=== PATIENT | male | born 1960 | race Caucasian/White ===

== ENCOUNTER 2021-02-20 10:00 | Outpatient (REF) | payer OTHER, SELFPAY ==
[2021-02-20 11:29] LABS: MANUAL DIFF FLAG NO
[2021-02-20 11:46] LABS: Basophils Absolute Auto 0.1 X10*3/uL (0.0-0.2); Basophils Percent Auto 0.7 % (0-2); Eosinophils Absolute Auto 0.2 X10*3/uL (0.0-0.4); Eosinophils Percent Auto 2.6 % (0-4); Hematocrit 47.5 % (42-52); Hemoglobin 15.4 g/dl (14.0-18.0); Imm Gran Abs Auto 0.03 X10*3/uL (0.00-0.03); Imm Gran Pct Auto 0.4 % (0.0-0.4); Lymphocytes Absolute Auto 1.9 X10*3/uL (1.2-4.9); Lymphocytes Percent Auto 26.2 % (20-40); Mean Corpuscular HGB Conc 32.4 g/dl (31.0-36.0); Mean Corpuscular Hemoglobin 29.3 pg (27.0-33.0); Mean Corpuscular Volume 90.3 fL (80-98); Mean Platelet Volume 11.3 fL (9.4-12.4); Monocytes Absolute Auto 0.5 X10*3/uL (0.1-1.2); Neutrophils Absolute Auto 4.7 X10*3/uL (2.0-8.3); Neutrophils Percent Auto 63.1 % (45-73); Platelet Count 202 X10*3/uL (160-400); Red Blood Count 5.26 X10*6/uL (4.60-5.80); Red Cell Distribution Width 12.8 % (11.0-16.0); White Blood Count 7.4 X10*3/uL (4.8-10.8)
[2021-02-20 12:01] LABS: Alanine Aminotransferase 67 U/L (0-40); Albumin Level 4.3 g/dL (3.5-5.0); Alkaline Phosphatase 72 U/L (39-117); Anion Gap 13 (12-20); Aspartate Amino Transferase 32 U/L (5-37); Bilirubin Total 0.7 mg/dL (0.0-1.0); Blood Urea Nitrogen 15 mg/dL (9-16); Calcium 9.2 mg/dL (8.4-10.2); Carbon Dioxide 28 mmol/L (22-29); Chloride 106 mmol/L (96-108); Cholesterol 208 mg/dL; Estimated Glomerular Filt Rate > 60; Glucose Fasting 123 mg/dL (60-99); HDL Cholesterol 52 mg/dL; LDL Cholesterol Calculated 119 mg/dl; Sodium 143 mmol/L (135-145); Total Protein 6.7 g/dL (6.5-8.0); Triglycerides 186 mg/dL
[2021-02-20 12:18] LABS: Microalbum/Creatinine Ratio Ur 4.3 ug/mg cr
[2021-02-20 12:23] LABS: Estimated Average Glucose 120 mg/dL; Hemoglobin A1c % 5.8 %
== END 2021-02-20 10:01 | disposition home or self-care (01) ==
LOC: HO.HMGCLDS 10:00
PROVIDERS: PCP Internal Medicine; Visit Provider Internal Medicine
DX: I10 Essential (primary) hypertension (principal); R73.03 Prediabetes; E78.00 Pure hypercholesterolemia, unspecified
CPT/HCPCS: 36415; 80053; 80061; 82043; 83036; 85025

== ENCOUNTER 2021-08-18 09:42 | Outpatient (REF) | payer OTHER, SELFPAY ==
[2021-08-18 11:42] LABS: MANUAL DIFF FLAG NO
[2021-08-18 11:48] LABS: Basophils Percent Auto 0.5 % (0-2); Eosinophils Absolute Auto 0.2 X10*3/uL (0.0-0.4); Eosinophils Percent Auto 2.1 % (0-4); Hematocrit 47.9 % (42.0-52.0); Hemoglobin 15.4 g/dl (14.0-18.0); Imm Gran Abs Auto 0.03 X10*3/uL (0.00-0.03); Imm Gran Pct Auto 0.4 % (0.0-0.4); Lymphocytes Absolute Auto 2.3 X10*3/uL (1.2-4.9); Lymphocytes Percent Auto 28.6 % (20-40); Mean Corpuscular HGB Conc 32.2 g/dl (31.0-36.0); Mean Corpuscular Volume 90.2 fL (80.0-98.0); Mean Platelet Volume 11.2 fL (9.4-12.4); Monocytes Absolute Auto 0.7 X10*3/uL (0.1-1.2); Monocytes Percent Auto 8.7 % (2-11); Neutrophils Absolute Auto 4.8 x10*3/uL (2.0-8.3); Neutrophils Percent Auto 59.7 % (45-73); Platelet Count 209 X10*3/uL (160-400); Red Blood Count 5.31 X10*6/uL (4.60-5.80); White Blood Count 8.1 X10*3/uL (4.8-10.8)
[2021-08-18 12:08] LABS: Alanine Aminotransferase 59 U/L (0-40); Albumin Level 4.3 g/dL (3.5-5.0); Alkaline Phosphatase 71 U/L (39-117); Anion Gap 15 (12-20); Aspartate Amino Transferase 28 U/L (5-37); Bilirubin Total 0.5 mg/dL (0.0-1.0); Blood Urea Nitrogen 19 mg/dL (9-16); Calcium 9.4 mg/dL (8.4-10.2); Carbon Dioxide 27 mmol/L (22-29); Chloride 104 mmol/L (96-108); Estimated Glomerular Filt Rate 60; Glucose Random 125 mg/dL (60-115); Potassium 4.4 mmol/L (3.3-5.1); Sodium 142 mmol/L (135-145); Total Protein 6.9 g/dL (6.5-8.0)
[2021-08-18 12:13] LABS: Estimated Average Glucose 120 mg/dL; Hemoglobin A1c % 5.8 %
== END 2021-08-18 09:43 | disposition home or self-care (01) ==
LOC: HO.HMGCLDS 09:42
PROVIDERS: PCP Internal Medicine; Visit Provider Internal Medicine
DX: I10 Essential (primary) hypertension (principal); R73.03 Prediabetes; R79.89 Other specified abnormal findings of blood chemistry
CPT/HCPCS: 36415; 80053; 83036; 85025

== ENCOUNTER 2021-12-31 09:10 | Outpatient (REF) | payer OTHER, SELFPAY ==
[2021-12-31 11:51] LABS: MANUAL DIFF FLAG NO
[2021-12-31 12:00] LABS: Basophils Absolute Auto 0.1 X10*3/uL (0.0-0.2); Basophils Percent Auto 0.7 % (0-2); Eosinophils Absolute Auto 0.1 X10*3/uL (0.0-0.4); Eosinophils Percent Auto 1.9 % (0-4); Hematocrit 48.9 % (42.0-52.0); Hemoglobin 15.8 g/dl (14.0-18.0); Imm Gran Abs Auto 0.01 X10*3/uL (0.00-0.03); Imm Gran Pct Auto 0.1 % (0.0-0.4); Lymphocytes Absolute Auto 2.1 X10*3/uL (1.2-4.9); Lymphocytes Percent Auto 28.3 % (20-40); Mean Corpuscular HGB Conc 32.3 g/dl (31.0-36.0); Mean Corpuscular Hemoglobin 28.8 pg (27.0-33.0); Mean Corpuscular Volume 89.2 fL (80.0-98.0); Mean Platelet Volume 11.1 fL (9.4-12.4); Monocytes Absolute Auto 0.6 X10*3/uL (0.1-1.2); Monocytes Percent Auto 7.5 % (2-11); Neutrophils Absolute Auto 4.6 x10*3/uL (2.0-8.3); Neutrophils Percent Auto 61.5 % (45-73); Platelet Count 215 X10*3/uL (160-400); Red Blood Count 5.48 X10*6/uL (4.60-5.80); Red Cell Distribution Width 12.9 % (11.0-16.0); White Blood Count 7.4 X10*3/uL (4.8-10.8)
[2021-12-31 12:15] LABS: Microalbum/Creatinine Ratio Ur 4.5 ug/mg cr
[2021-12-31 12:17] LABS: Alanine Aminotransferase 60 U/L (0-40); Albumin Level 4.2 g/dL (3.5-5.0); Alkaline Phosphatase 68 U/L (39-117); Anion Gap 12 (12-20); Aspartate Amino Transferase 29 U/L (5-37); Bilirubin Total 0.4 mg/dL (0.0-1.0); Blood Urea Nitrogen 17 mg/dL (9-16); Calcium 9.7 mg/dL (8.4-10.2); Carbon Dioxide 26 mmol/L (22-29); Chloride 107 mmol/L (96-108); Estimated Glomerular Filt Rate > 60; Glucose Random 136 mg/dL (60-115); Potassium 4.3 mmol/L (3.3-5.1); Sodium 141 mmol/L (135-145); Total Protein 6.7 g/dL (6.5-8.0)
[2021-12-31 12:57] LABS: Estimated Average Glucose 128 mg/dL; Hemoglobin A1c % 6.1 %
== END 2021-12-31 09:11 | disposition home or self-care (01) ==
LOC: HO.HMGCLDS 09:10
PROVIDERS: PCP Internal Medicine; Visit Provider Internal Medicine
DX: R73.03 Prediabetes (principal); I10 Essential (primary) hypertension; E78.00 Pure hypercholesterolemia, unspecified; K21.9 Gastro-esophageal reflux disease without esophagitis
CPT/HCPCS: 36415; 80053; 82043; 83036; 85025

== ENCOUNTER 2022-04-27 09:39 | Outpatient (REF) | payer OTHER, SELFPAY ==
[2022-04-27 11:46] LABS: Anion Gap 12 (12-20); Blood Urea Nitrogen 15 mg/dL (9-16); Carbon Dioxide 26 mmol/L (22-29); Chloride 105 mmol/L (96-108); Estimated Average Glucose 123 mg/dL; Estimated Glomerular Filt Rate > 60; Glucose Random 138 mg/dL (60-115); Hemoglobin A1c % 5.9 %; Potassium 4.1 mmol/L (3.3-5.1); Sodium 139 mmol/L (135-145)
== END 2022-04-27 09:40 | disposition home or self-care (01) ==
LOC: HO.HMGCLDS 09:39
PROVIDERS: Visit Provider Internal Medicine
DX: I10 Essential (primary) hypertension (principal); R73.03 Prediabetes
CPT/HCPCS: 36415; 80048; 83036

== ENCOUNTER 2022-09-03 08:41 | Outpatient (REF) | payer OTHER, SELFPAY ==
[2022-09-03 11:17] LABS: MANUAL DIFF FLAG NO
[2022-09-03 11:24] LABS: Basophils Absolute Auto 0.1 X10*3/uL (0.0-0.2); Basophils Percent Auto 0.6 % (0-2); Eosinophils Absolute Auto 0.2 X10*3/uL (0.0-0.4); Eosinophils Percent Auto 2.5 % (0-4); Hematocrit 49.6 % (42.0-52.0); Imm Gran Abs Auto 0.03 X10*3/uL (0.00-0.03); Imm Gran Pct Auto 0.3 % (0.0-0.4); Lymphocytes Absolute Auto 2.4 X10*3/uL (1.2-4.9); Lymphocytes Percent Auto 26.3 % (20-40); Mean Corpuscular HGB Conc 32.3 g/dl (31.0-36.0); Mean Corpuscular Hemoglobin 28.9 pg (27.0-33.0); Mean Corpuscular Volume 89.7 fL (80.0-98.0); Mean Platelet Volume 11.3 fL (9.4-12.4); Monocytes Absolute Auto 0.7 X10*3/uL (0.1-1.2); Monocytes Percent Auto 7.7 % (2-11); Neutrophils Absolute Auto 5.6 x10*3/uL (2.0-8.3); Neutrophils Percent Auto 62.6 % (45-73); Platelet Count 193 X10*3/uL (160-400); Red Blood Count 5.53 X10*6/uL (4.60-5.80); Red Cell Distribution Width 13.3 % (11.0-16.0); White Blood Count 8.9 X10*3/uL (4.8-10.8)
[2022-09-03 12:01] LABS: Alanine Aminotransferase 60 U/L (0-40); Albumin Level 4.3 g/dL (3.5-5.0); Alkaline Phosphatase 74 U/L (39-117); Aspartate Amino Transferase 30 U/L (5-37); Bilirubin Direct 0.2 mg/dL (0.0-0.5); Bilirubin Total 0.5 mg/dL (0.0-1.0); Cholesterol 228 mg/dL; HDL Cholesterol 47 mg/dL; LDL Cholesterol Calculated 142 mg/dl; Total Protein 6.7 g/dL (6.5-8.0); Triglycerides 196 mg/dL
== END 2022-09-03 08:42 | disposition home or self-care (01) ==
LOC: HO.HMGCLDS 08:41
PROVIDERS: PCP Internal Medicine; Visit Provider Internal Medicine
DX: Z00.00 Encounter for general adult medical examination without abnormal findings (principal); Z12.5 Encounter for screening for malignant neoplasm of prostate
CPT/HCPCS: 36415; 80061; 80076; 84153; 85025

== ENCOUNTER 2023-01-08 09:28 | Outpatient (REF) | payer OTHER, SELFPAY ==
[2023-01-08 11:42] LABS: MANUAL DIFF FLAG NO
[2023-01-08 11:56] LABS: Basophils Percent Auto 0.4 % (0-2); Eosinophils Absolute Auto 0.2 X10*3/uL (0.0-0.4); Hematocrit 49.9 % (42.0-52.0); Imm Gran Abs Auto 0.01 X10*3/uL (0.00-0.03); Imm Gran Pct Auto 0.1 % (0.0-0.4); Lymphocytes Absolute Auto 2.4 X10*3/uL (1.2-4.9); Lymphocytes Percent Auto 30.9 % (20-40); Mean Corpuscular HGB Conc 32.1 g/dl (31.0-36.0); Mean Corpuscular Hemoglobin 28.6 pg (27.0-33.0); Mean Corpuscular Volume 89.3 fL (80.0-98.0); Mean Platelet Volume 10.7 fL (9.4-12.4); Monocytes Absolute Auto 0.6 X10*3/uL (0.1-1.2); Monocytes Percent Auto 7.2 % (2-11); Neutrophils Absolute Auto 4.4 x10*3/uL (2.0-8.3); Neutrophils Percent Auto 58.4 % (45-73); Platelet Count 208 X10*3/uL (160-400); Red Blood Count 5.59 X10*6/uL (4.60-5.80); Red Cell Distribution Width 13.4 % (11.0-16.0); White Blood Count 7.6 X10*3/uL (4.8-10.8)
[2023-01-08 12:03] LABS: Estimated Average Glucose 128 mg/dL; Hemoglobin A1c % 6.1 %
[2023-01-08 12:20] LABS: Alanine Aminotransferase 34 U/L (0-40); Albumin Level 4.2 g/dL (3.5-5.0); Alkaline Phosphatase 78 U/L (39-117); Anion Gap 14 (12-20); Aspartate Amino Transferase 24 U/L (5-37); Bilirubin Total 0.7 mg/dL (0.0-1.0); Blood Urea Nitrogen 21 mg/dL (9-16); Calcium 9.5 mg/dL (8.4-10.2); Carbon Dioxide 29 mmol/L (22-29); Chloride 106 mmol/L (96-108); Cholesterol 198 mg/dL; Estimated Glomerular Filt Rate > 60; Glucose Fasting 133 mg/dL (60-99); HDL Cholesterol 41 mg/dL; LDL Cholesterol Calculated 128 mg/dl; Potassium 4.5 mmol/L (3.3-5.1); Sodium 144 mmol/L (135-145); Total Protein 6.5 g/dL (6.5-8.0); Triglycerides 147 mg/dL
== END 2023-01-08 09:29 | disposition home or self-care (01) ==
LOC: HO.HMGCLDS 09:28
PROVIDERS: PCP Internal Medicine; Visit Provider Internal Medicine
DX: I10 Essential (primary) hypertension (principal); E78.00 Pure hypercholesterolemia, unspecified; R73.03 Prediabetes
CPT/HCPCS: 36415; 80053; 80061; 83036; 85025

== ENCOUNTER 2023-09-13 09:47 | Outpatient (REF) | payer MEDICARE, OTHER, SELFPAY ==
[2023-09-13 13:56] LABS: Estimated Average Glucose 131 mg/dL; Hemoglobin A1c % 6.2 % (<6.0)
[2023-09-13 14:09] LABS: Anion Gap 14 (12-20); Blood Urea Nitrogen 14 mg/dL (9-16); Calcium 9.6 mg/dL (8.4-10.2); Carbon Dioxide 25 mmol/L (22-29); Chloride 106 mmol/L (96-108); Estimated Glomerular Filt Rate > 60; Glucose Random 129 mg/dL (60-115); Potassium 4.3 mmol/L (3.3-5.1); Sodium 141 mmol/L (135-145)
== END 2023-09-13 09:48 | disposition home or self-care (01) ==
LOC: HO.HMGCLDS 09:47
PROVIDERS: PCP Internal Medicine; Visit Provider Internal Medicine
DX: I10 Essential (primary) hypertension (principal); K21.9 Gastro-esophageal reflux disease without esophagitis; R73.03 Prediabetes
CPT/HCPCS: 36415; 80048; 83036

== ENCOUNTER 2023-12-23 08:46 | Outpatient (REF) | payer MEDICARE, OTHER, SELFPAY ==
[2023-12-23 11:31] LABS: Estimated Average Glucose 131 mg/dL; Hemoglobin A1c % 6.2 % (<6.0)
[2023-12-23 11:44] LABS: Alanine Aminotransferase 32 U/L (0-40); Albumin Level 4.1 g/dL (3.5-5.0); Alkaline Phosphatase 75 U/L (39-117); Anion Gap 14 (12-20); Aspartate Amino Transferase 19 U/L (5-37); Bilirubin Total 0.4 mg/dL (0.0-1.0); Blood Urea Nitrogen 18 mg/dL (9-16); Calcium 9.6 mg/dL (8.4-10.2); Carbon Dioxide 26 mmol/L (22-29); Chloride 105 mmol/L (96-108); Estimated Glomerular Filt Rate > 60; Glucose Random 146 mg/dL (60-115); Potassium 4.2 mmol/L (3.3-5.1); Sodium 141 mmol/L (135-145); Total Protein 6.9 g/dL (6.5-8.0)
[2023-12-23 11:48] LABS: Prostate Specific Antigen 0.64 ng/mL (<0.05-4.0)
[2023-12-23 11:49] LABS: Creatinine Urine 228.39 mg/dL; Microalbum/Creatinine Ratio Ur 5.2 ug/mg cr (<30)
== END 2023-12-23 08:47 | disposition home or self-care (01) ==
LOC: HO.HMGCLDS 08:46
PROVIDERS: PCP Internal Medicine; Visit Provider Internal Medicine
DX: Z12.5 Encounter for screening for malignant neoplasm of prostate (principal); K21.9 Gastro-esophageal reflux disease without esophagitis; R73.01 Impaired fasting glucose; I10 Essential (primary) hypertension
CPT/HCPCS: 36415; 80053; 82043; 82570; 83036; 84153

== ENCOUNTER 2024-02-01 10:25 | Day surgery (SDC) | payer MEDICARE, OTHER, SELFPAY ==
[2024-01-28 14:21] VITALS: BMI 41.8
--- NOTE | 2024-01-28 15:10 | P.CONAN_ITS ---
Documented by User: Elizabeth Garduno NP 01/28/24 15:10 HPI - Anesthesia Eval Consult details Narrative: 63yo M for Upper Endoscopy and Colonoscopy [facility] Past Medical History Medical History (Updated 01/28/24 @ 14:20 by Carmen Serrato RN) Elevated cholesterol HTN (hypertension) Peptic ulcer GERD (gastroesophageal reflux disease) Surgical History Surgical History (Updated 01/28/24 @ 14:20 by Carmen Serrato RN) Hx of vasectomy Hx of hernia repair Hx of tonsillectomy H/O colonoscopy Social History Social History Patient Tobacco Use Status: Former Tobacco user Quit Date: >10 years ago Tobacco use type: Cigarette Advance Directives: No Advance Directives Information Provided: Yes Advance Directives on File: No Meds Allergies Allergy/AdvReac Type Severity Reaction Status Date / Time No Known Allergies Allergy Unverified 06/20/20 18:59 [No Known Allergies*] Home Medications ?Medication ?Instructions ?Recorded ?Confirmed ?Last Taken ?Type aspirin 81 mg tablet,delayed 81 mg PO DAILY 01/28/24 01/28/24 01/24/24 History release atorvastatin 20 mg tablet 20 mg PO DAILY 01/28/24 01/28/24 Unknown History cholecalciferol (vitamin D3) 50 50 mcg PO DAILY 01/28/24 01/28/24 Unknown History mcg (2,000 unit) capsule (Vitamin D3) lisinopril 10 mg tablet 10 mg PO DAILY 01/28/24 01/28/24 02/01/24 History omeprazole 20 mg capsule,delayed 20 mg PO DAILY 01/28/24 01/28/24 Unknown History release Exam Height,Weight and Vital Signs: Height 5 ft 9 in Weight 128.367 kg Assessment and Plan Assessment Anesthesia Assessment: Chart Reviewed Documented by User: Rhonda Will MD 02/01/24 12:09 [facility] Past Medical History Medical History (Updated 01/28/24 @ 14:20 by Carmen Serrato RN) Elevated cholesterol HTN (hypertension) Peptic ulcer GERD (gastroesophageal reflux disease) Family History Family history of problems with anesthesia: No Surgical History Surgical History (Updated 01/28/24 @ 14:20 by Carmen Serrato RN) Hx of vasectomy Hx of hernia repair Hx of tonsillectomy H/O colonoscopy History of Problems with Anesthesia: No Social History Social History Patient Tobacco Use Status: Former Tobacco user Quit Date: >10 years ago Tobacco use type: Cigarette Advance Directives: No Advance Directives Information Provided: Yes Advance Directives on File: No Meds Allergies Allergy/AdvReac Type Severity Reaction Status Date / Time No Known Allergies Allergy Unverified 06/20/20 18:59 [No Known Allergies*] Home Medications ?Medication ?Instructions ?Recorded ?Confirmed ?Last Taken ?Type aspirin 81 mg tablet,delayed 81 mg PO DAILY 01/28/24 01/28/24 01/24/24 History release atorvastatin 20 mg tablet 20 mg PO DAILY 01/28/24 01/28/24 Unknown History cholecalciferol (vitamin D3) 50 50 mcg PO DAILY 01/28/24 01/28/24 Unknown History mcg (2,000 unit) capsule (Vitamin D3) lisinopril 10 mg tablet 10 mg PO DAILY 01/28/24 01/28/24 02/01/24 History omeprazole 20 mg capsule,delayed 20 mg PO DAILY 01/28/24 01/28/24 Unknown History release Exam Airway Mallampati Class: II TM Dist: >3cm Neck ROM: Full Assessment and Plan Assessment Anesthesia Assessment: Anesthesia Plan Discussed Final Anesthetic Review Family History of Problems with Anesthesia: No History of Problems with Anesthesia: No NPO: Yes ASA Class: III Final Preanesthetic Review: No Changes in Pt Med Stat, Meds/Allgs Chart Reviewed, Consent Obtained/Reviewed and Anes Risks/Benef Reviewed Patient Risk: Intermediate Procedure Risk: Low Anesthetic Plan Anesthetic Plan: TIVA Disposition: Standard PACU
[2024-02-01 11:08] VITALS: BP 124/89; PULSE 79; RESP 20; TEMP 36.9; O2SAT 97
[2024-02-01 11:18] VITALS: BMI 42.0
[2024-02-01] MEDS: Lactated Ringers 1,000 ML 100 ML IVCONT (11:33)
--- NOTE | 2024-02-01 12:23 | MHC.SHP ---
Pre-Procedural Eval Section A - 24 Hr Update-Section A only Date of Service: 02/01/24 Section B - Complete if H&P > 30 days Chief Complaint: Gastro-esophageal reflux disease without esophagit Details of Present Illness: see H&P no chnges Relevant Family History (Specify if Yes): No Relevant Social History: None Present Medications: see Short Stay Collaborative assessment Medical History: No relevant PMH History of Previous Operations: No relevant previous surgery Allergies: Allergies Allergy/AdvReac Type Severity Reaction Status Date / Time No Known Allergies Allergy Unverified 06/20/20 18:59 [No Known Allergies*] Review of Systems Sugical H&P ROS: Negative: Constitution, Cardiovascular, Respiratory, Neurological, Psychiatric, Hem-Onc, Allergic/Immunologic, Gastrointestinal, Genitourinary, Musculoskeletal, Integumentary, Endocrine and Eyes/Ears/Nose/Throat Exam Surgical H&P Exam: Normal: HEENT, Normal: Heart, Normal: Lungs, Normal: Extremities, Normal: Abdomen, Normal: Skin and Normal: Neurological Plan Diagnosis/Plan: Unchanged I have reviewed the history and physical and performed a pertinent physical examination on my patient. No changes have occurred unless specified. Time Spent With Patient Time: Total time managing care of this patient today ____ minutes.
[2024-02-01 13:22] VITALS: BP 101/56; PULSE 77; RESP 16; TEMP 36.2; O2SAT 94
[2024-02-01 13:37] VITALS: BP 118/82; PULSE 83; RESP 16; TEMP 36.2; O2SAT 96
--- NOTE | 2024-02-01 14:30 | OP_ITS ---
DATE OF SERVICE: 02/01/2024 SURGEON: Nsaim Rizzo MD INDICATIONS: 1. Colon cancer screening. 2. Gastroesophageal reflux disease. PREOPERATIVE DIAGNOSIS: POSTOPERATIVE DIAGNOSIS: PROCEDURE PERFORMED: ESTIMATED BLOOD LOSS: COMPLICATIONS: ANESTHESIA: Monitored anesthesia care. ASSISTANTS: SPECIMENS: PROCEDURES PERFORMED: 1. Upper endoscopy with biopsy. 2. Colonoscopy to the terminal ileum with snare polypectomy and biopsy. DESCRIPTION OF PROCEDURE: A history and physical was performed. The risks and benefits of the procedure were explained to the patient and informed consent was obtained. The patient was placed in the left lateral decubitus position. The Olympus video gastroscope was introduced into the esophagus, stomach, and duodenum. Examination was performed and the scope was removed. He was repositioned for colonoscopy. A digital rectal exam was performed and was found to be normal. The Olympus pediatric video colonoscope was introduced into the rectum and advanced to the cecum. The cecum was identified by transillumination, palpation, and identification of ileocecal valve. Examination was performed and the scope was removed. He tolerated both procedures well and was returned to recovery area in stable condition. FINDINGS: Upper endoscopy, esophagus: The esophagus showed an irregular EG junction. This was biopsied. Stomach: The stomach was normal. Antral biopsies were obtained. Duodenum: The bulb and 2nd portion were normal. Colonoscopy: The terminal ileum was examined and appeared normal. The visualized colonic mucosa was normal. The quality of prep was good. At 80 cm from the anal verge, was a 6 mm polyp, which was removed with a cold snare and recovered via suction. There were multiple hyperplastic-appearing rectal polyps, 2 of these were biopsied, all measured less than 10 mm. Retroflexed examination showed internal hemorrhoids. IMPRESSION: 1. Gastroesophageal reflux disease. 2. Colon polyps. RECOMMENDATION: Follow up the biopsy results. MD ELLY Mendoza/ALISON / [id number]
== END 2024-02-01 14:19 | disposition home or self-care (01) ==
PROVIDERS: PCP Internal Medicine; Visit Provider Internal Medicine Gastroenterology
PROC: (CPT 45385; principal; 2024-02-01 13:00)
DX: Z12.11 Encounter for screening for malignant neoplasm of colon (principal); D12.6 Benign neoplasm of colon, unspecified; K63.5 Polyp of colon; K64.8 Other hemorrhoids; Z80.0 Family history of malignant neoplasm of digestive organs; K21.9 Gastro-esophageal reflux disease without esophagitis; I10 Essential (primary) hypertension
CPT/HCPCS: 45385; 45380; 43239; 88305; 88313; 88342; J1596; J2704

== ENCOUNTER 2024-03-07 08:58 | Day surgery (SDC) | payer MEDICARE, SELFPAY ==
--- NOTE | 2024-03-06 09:18 | HO.ANESPROP2 ---
Documented by User: Elizabeth Garduno NP 03/06/24 09:19 HPI - Anesthesia Eval Consult details Narrative: 64yo M for Upper Endoscopy s/p EGD and [facility] 01/2024 with [facility] Past Medical History Medical History Elevated cholesterol HTN (hypertension) Peptic ulcer GERD (gastroesophageal reflux disease) Family History Family history of problems with anesthesia: No Surgical History Surgical History Hx of vasectomy Hx of hernia repair Hx of tonsillectomy H/O colonoscopy History of Problems with Anesthesia: No Social History Social History Patient Tobacco Use Status: Former Tobacco user Tobacco use type: Cigarette Are you DNR?: No Advance Directives: No Advance Directives Information Provided: Yes Recently lost weight without trying: No Nutrition Risks: No Nutritional Risk Meds Allergies Allergy/AdvReac Type Severity Reaction Status Date / Time No Known Allergies Allergy Unverified 06/20/20 18:59 [No Known Allergies*] Home Medications ?Medication ?Instructions ?Recorded ?Confirmed ?Last Taken ?Type aspirin 81 mg tablet,delayed 81 mg PO DAILY 01/28/24 01/28/24 01/24/24 History release atorvastatin 20 mg tablet 20 mg PO DAILY 01/28/24 01/28/24 Unknown History cholecalciferol (vitamin D3) 50 50 mcg PO DAILY 01/28/24 01/28/24 Unknown History mcg (2,000 unit) capsule (Vitamin D3) lisinopril 10 mg tablet 10 mg PO DAILY 01/28/24 01/28/24 02/01/24 History omeprazole 20 mg capsule,delayed 20 mg PO DAILY 01/28/24 01/28/24 Unknown History release Assessment and Plan Assessment Anesthesia Assessment: Chart Reviewed Final Anesthetic Review Family History of Problems with Anesthesia: No History of Problems with Anesthesia: No Documented by User: Beth Graff MD 03/07/24 10:24 [facility] Past Medical History Medical History Elevated cholesterol HTN (hypertension) Peptic ulcer GERD (gastroesophageal reflux disease) Surgical History Surgical History Hx of vasectomy Hx of hernia repair Hx of tonsillectomy H/O colonoscopy Social History Social History Patient Tobacco Use Status: Former Tobacco user Tobacco use type: Cigarette Are you DNR?: No Advance Directives: No Advance Directives Information Provided: Yes Recently lost weight without trying: No Nutrition Risks: No Nutritional Risk Meds Allergies Allergy/AdvReac Type Severity Reaction Status Date / Time No Known Allergies Allergy Unverified 06/20/20 18:59 [No Known Allergies*] Home Medications ?Medication ?Instructions ?Recorded ?Confirmed ?Last Taken ?Type aspirin 81 mg tablet,delayed 81 mg PO DAILY 01/28/24 01/28/24 01/24/24 History release atorvastatin 20 mg tablet 20 mg PO DAILY 01/28/24 01/28/24 Unknown History cholecalciferol (vitamin D3) 50 50 mcg PO DAILY 01/28/24 01/28/24 Unknown History mcg (2,000 unit) capsule (Vitamin D3) lisinopril 10 mg tablet 10 mg PO DAILY 01/28/24 01/28/24 02/01/24 History omeprazole 20 mg capsule,delayed 20 mg PO DAILY 01/28/24 01/28/24 Unknown History release Exam Airway Mallampati Class: II TM Dist: >3cm Neck ROM: Full Heart: rrr Lungs: cta Assessment and Plan Assessment Anesthesia Assessment: Anesthesia Plan Discussed Final Anesthetic Review NPO: Yes ASA Class: III Final Preanesthetic Review: No Changes in Pt Med Stat, Meds/Allgs Chart Reviewed and Consent Obtained/Reviewed Patient Risk: Low Procedure Risk: Intermediate Anesthetic Plan Anesthetic Plan: MAC: Disposition: Standard PACU
[2024-03-07 09:36] VITALS: BP 152/98; PULSE 83; RESP 20; TEMP 36.3; O2SAT 97; BMI 43.8
[2024-03-07] MEDS: Lactated Ringers 1,000 ML 100 ML IVCONT (09:57)
--- NOTE | 2024-03-07 10:31 | MHC.SHP ---
Pre-Procedural Eval Section A - 24 Hr Update-Section A only Date of Service: 03/07/24 Section B - Complete if H&P > 30 days Chief Complaint: Gastric intestinal metaplasia, unspecified Details of Present Illness: see H&P and addendum Relevant Family History (Specify if Yes): No Relevant Social History: None Present Medications: see Short Stay Collaborative assessment Medical History: No relevant PMH History of Previous Operations: No relevant previous surgery Allergies: Allergies Allergy/AdvReac Type Severity Reaction Status Date / Time No Known Allergies Allergy Unverified 06/20/20 18:59 [No Known Allergies*] Review of Systems Sugical H&P ROS: Negative: Constitution, Cardiovascular, Respiratory, Neurological, Psychiatric, Hem-Onc, Allergic/Immunologic, Gastrointestinal, Genitourinary, Musculoskeletal, Integumentary, Endocrine and Eyes/Ears/Nose/Throat Exam Surgical H&P Exam: Normal: HEENT, Normal: Heart, Normal: Lungs, Normal: Extremities, Normal: Abdomen, Normal: Skin and Normal: Neurological Plan Diagnosis/Plan: Unchanged I have reviewed the history and physical and performed a pertinent physical examination on my patient. No changes have occurred unless specified. Time Spent With Patient Time: Total time managing care of this patient today ____ minutes.
[2024-03-07 11:51] VITALS: BP 109/66; PULSE 83; RESP 18; TEMP 36.4; O2SAT 94
--- NOTE | 2024-03-07 12:00 | OP_ITS ---
DATE OF SERVICE: 03/07/2024 SURGEON: Nasim Rizzo MD INDICATIONS: Gastric intestinal metaplasia. PREOPERATIVE DIAGNOSIS: POSTOPERATIVE DIAGNOSIS: PROCEDURE PERFORMED: Upper endoscopy with biopsy. ESTIMATED BLOOD LOSS: COMPLICATIONS: ANESTHESIA: Monitored anesthesia care. ASSISTANTS: SPECIMENS: DESCRIPTION OF PROCEDURE: A history and physical was performed. The risks and benefits of the procedure were explained to the patient and informed consent was obtained. The patient was placed in the left lateral decubitus position. The Olympus video gastroscope was introduced into the esophagus, stomach, and duodenum. Examination was performed and the scope was removed. He tolerated the procedure well and was returned to recovery area in stable condition. FINDINGS: Esophagus: The esophagus showed an irregular EG junction. There was no esophagitis. There was no change from his last endoscopy. Stomach: The stomach showed no evidence of masses, ulcers, or polyps. Biopsies were obtained from throughout the stomach in accordance with protocol for gastric intestinal metaplasia. There were no mass lesions or raised areas. The antrum was mildly nodular, but did not seem clinically significant. Duodenum: The bulb and 2nd portion were normal. IMPRESSION: Gastric intestinal metaplasia. RECOMMENDATION: Follow up the biopsy results. MD ELLY Mendoza/ALISON / [id number]
[2024-03-07 12:06] VITALS: BP 135/84; PULSE 82; RESP 18; TEMP 36.4; O2SAT 95
== END 2024-03-07 12:43 | disposition home or self-care (01) ==
PROVIDERS: PCP Internal Medicine; Visit Provider Internal Medicine Gastroenterology
PROC: 0DJ08ZZ Inspection of Upper Intestinal Tract, Via Natural or Artificial Opening Endoscopic (ICD-10-PCS; CPT 43235; principal; 2024-03-07 11:50)
DX: K31.A0 Gastric intestinal metaplasia, unspecified (principal); I10 Essential (primary) hypertension; Z79.899 Other long term (current) drug therapy; Z80.0 Family history of malignant neoplasm of digestive organs
CPT/HCPCS: 43239; 88305; 88313; 88342; J2704

== ENCOUNTER 2024-08-14 14:48 | Outpatient (REF) | payer MEDICARE, SELFPAY ==
[2024-08-14 15:58] LABS: MANUAL DIFF FLAG NO
[2024-08-14 16:12] LABS: Basophils Absolute Auto 0.1 X10*3/uL (0.0-0.2); Basophils Percent Auto 0.7 % (0-2); Eosinophils Absolute Auto 0.2 X10*3/uL (0.0-0.4); Eosinophils Percent Auto 2.9 % (0-4); Hematocrit 47.9 % (42.0-52.0); Hemoglobin 15.7 g/dl (14.0-18.0); Imm Gran Abs Auto 0.02 X10*3/uL (0.00-0.03); Imm Gran Pct Auto 0.3 % (0.0-0.4); Lymphocytes Absolute Auto 1.9 X10*3/uL (1.2-4.9); Lymphocytes Percent Auto 24.5 % (20-40); Mean Corpuscular HGB Conc 32.8 g/dl (31.0-36.0); Mean Corpuscular Hemoglobin 29.1 pg (27.0-33.0); Mean Corpuscular Volume 88.9 fL (80.0-98.0); Mean Platelet Volume 10.9 fL (9.4-12.4); Monocytes Absolute Auto 0.4 X10*3/uL (0.1-1.2); Monocytes Percent Auto 4.6 % (2-11); Neutrophils Absolute Auto 5.1 x10*3/uL (2.0-8.3); Platelet Count 220 X10*3/uL (160-400); Red Blood Count 5.39 X10*6/uL (4.60-5.80); Red Cell Distribution Width 13.2 % (11.0-16.0); White Blood Count 7.6 X10*3/uL (4.8-10.8)
[2024-08-14 16:47] LABS: Alanine Aminotransferase 43 U/L (0-40); Albumin Level 4.1 g/dL (3.5-5.0); Alkaline Phosphatase 79 U/L (39-117); Anion Gap 12 (12-20); Aspartate Amino Transferase 30 U/L (5-37); Bilirubin Total 0.4 mg/dL (0.0-1.0); Blood Urea Nitrogen 14 mg/dL (9-16); Calcium 9.8 mg/dL (8.4-10.2); Carbon Dioxide 26 mmol/L (22-29); Chloride 104 mmol/L (96-108); Estimated Glomerular Filt Rate > 60; Glucose Random 193 mg/dL (60-115); Potassium 4.1 mmol/L (3.3-5.1); Sodium 138 mmol/L (135-145); Total Protein 7.1 g/dL (6.5-8.0)
[2024-08-14 16:49] LABS: Creatinine Urine 76.57 mg/dL; Microalbumin Urine < 5.0 mg/L
[2024-08-14 17:11] LABS: Estimated Average Glucose 140 mg/dL; Hemoglobin A1C 197.1932 umol/L; Hemoglobin A1c % 6.5 % (<6.0); Total Hemoglobin (HGBA1C) 4119.1923 umol/L
== END 2024-08-14 14:49 | disposition home or self-care (01) ==
LOC: HO.HMGCLDS 14:48
PROVIDERS: PCP Internal Medicine; Visit Provider Internal Medicine
DX: E11.9 Type 2 diabetes mellitus without complications (principal); K21.9 Gastro-esophageal reflux disease without esophagitis
CPT/HCPCS: 36415; 80053; 82043; 82570; 83036; 85025

== ENCOUNTER 2024-12-29 10:20 | Outpatient (REF) | payer MEDICARE, OTHER, SELFPAY ==
[2024-12-29 13:48] LABS: Estimated Average Glucose 140 mg/dL; Hemoglobin A1c % 6.5 % (<6.0)
[2024-12-29 13:53] LABS: Alanine Aminotransferase 48 U/L (0-40); Albumin Level 4.1 g/dL (3.5-5.0); Alkaline Phosphatase 76 U/L (39-117); Anion Gap 11 (12-20); Aspartate Amino Transferase 32 U/L (5-37); Bilirubin Total 0.4 mg/dL (0.0-1.0); Blood Urea Nitrogen 16 mg/dL (9-16); Calcium 9.3 mg/dL (8.4-10.2); Carbon Dioxide 27 mmol/L (22-29); Chloride 106 mmol/L (96-108); Estimated Glomerular Filt Rate > 60; Glucose Random 146 mg/dL (60-115); Potassium 4.3 mmol/L (3.3-5.1); Sodium 140 mmol/L (135-145); Total Protein 6.9 g/dL (6.5-8.0)
== END 2024-12-29 10:21 | disposition home or self-care (01) ==
LOC: HO.HMGCLDS 10:20
PROVIDERS: Visit Provider Internal Medicine
DX: E11.9 Type 2 diabetes mellitus without complications (principal); I10 Essential (primary) hypertension
CPT/HCPCS: 36415; 80053; 83036

== ENCOUNTER 2025-01-24 13:27 | Outpatient (AMB) | payer MEDICARE, SELFPAY ==
[2025-01-24 13:43] VITALS: BP 122/70; PULSE 83; TEMP 36.4; O2SAT 97; BMI 43.0
--- NOTE | 2025-01-24 13:43 | MHC.PC.OV ---
Vital Signs 01/24/25 13:43 Height 5 ft 8 in Weight 283 lb BMI 43.0 BP 122/70 Blood Pressure Location Lt brachial Position Sitting Pulse 83 Pulse Source Pulse Oximeter Temp 97.6 F Temp Source Axillary Pulse Oximetry (%) 97 Oxygen Delivery Method Room Air Intake Visit Reasons: Routine [place] [employer] Required: No Accompanied by: Self / Same As Patient Allergies No Known Allergies [No Known Allergies*] Allergy (Verified 01/24/25 13:44) Tobacco use date assessed: 01/24/25 Fall risk assessment: No Falls in past year Last assessed Fall Risk: 01/24/25 Dental Screening Dental Screen Date: 01/24/25 Did you have a dental visit in the last 12 months?: Yes Did you have a dental problem in the last 6 months where you did not have access to dental care?: No [facility] Medical History (Updated 01/24/25 @ 14:09 by Zachary Haas MD) Hyperlipidemia Elevated cholesterol HTN (hypertension) Peptic ulcer GERD (gastroesophageal reflux disease) Surgical History Hx of vasectomy Hx of hernia repair Hx of tonsillectomy H/O colonoscopy (~02/01/24) Family History (Updated 01/24/25 @ 13:52 by Jenny Miller MA) Mother No problems noted. Father No problems noted. Social History Housing: House Patient Tobacco Use Status: Former Tobacco user Tobacco use type: Cigarette e-Cigarette/Vaping Use: Former Use service: No Current occupational status: retired Cognitive needs: No Hearing needs: Yes (bilateral) Vision needs: Yes (rx glasses) Questionnaire PHQ-9 Over the last 2 weeks, how often have you been bothered by any of the following problems? 1. Little interest or pleasure in doing things: not at all 2. Feeling down, depressed, or hopeless: not at all 3. Trouble falling or staying asleep, or sleeping too much: not at all 4. Feeling tired or having little energy: not at all 5. Poor appetite or overeating: not at all 6. Feeling bad about yourself - or that you are a failure or have let yourself or your family down: not at all 7. Trouble concentrating on things, such as reading the newspaper or watching television: not at all 8. Moving or speaking so slowly that other people could have noticed. Or the opposite - being so fidgety or restless that you have been moving around a lot more than usual: not at all 9. Thoughts that you would be better off or of hurting yourself in some way: not at all Total score: 0 Depression Screening Interpretation: Negative Depression Screening Done: Yes Source: Developed by Drs. Major Glez, Britta Huynh, Marciano Nixon and colleagues, with an educational paul from [employer]. Thrive Questionnaire Date Thrive assessed: 01/24/25 I am a: Patient Within the past 12 months, did the food you bought not last and you didn't have the money to get more?: Never true Within the past 12 months, did you worry whether your food would run out before you got money to buy more?: Never true Do you have trouble paying for medicines?: No Do you have trouble getting transportation to medical appointments?: No Do you have trouble paying your heating and electricity bill?: No Do you have trouble taking care of your child, family member or friend?: No Do you have trouble with day-to-day activities such as bathing, preparing meals, shopping, managing finances, etc.?: No Are you currently unemployed and looking for a job?: No Are you interested in more education?: No Currently or been in a relationship where the following occur: I choose not to answer THRIVE Score: 0 AUDIT C Alcohol Use Questionnaire (AUDIT-C) 1. How often do you have a drink containing alcohol?: Monthly or less 2. How many drinks containing alcohol do you have on a typical day when you are drinking?: 1 or 2 3. How often do you have six or more drinks on one occasion?: Less than monthly Total Score: 2 HAYLEE-7 AMB Questionnaire HAYLEE-7 Date HAYLEE - 7 assessed: 01/24/25 Feeling nervous, anxious, or on edge: 0 = Not at all Not being able to stop or control worryin = Not at all Worrying too much about different things: 0 = Not at all Trouble relaxin = Not at all Being so restless that it is hard to sit still: 0 = Not at all Becoming easily annoyed or irritable: 0 = Not at all Feeling afraid as if something awful might happen: 0 = Not at all Total HAYLEE-7 score (0-4 normal; 5-9 mild; 10-14 moderate; 15-21 severe): 0 Source: Developed by Drs. Major Glez, Britta Huynh, Marciano Nixon and colleagues, with an educational paul from [employer]. Physical exam (Primary Care) Vital Signs: Last Vital Signs Temp 97.6 F 01/24/25 13:43 Pulse 83 01/24/25 13:43 BP 122/70 01/24/25 13:43 Pulse Ox 97 01/24/25 13:43 Oxygen Delivery Method Room Air 01/24/25 13:43 Care Plan Goal for BP management: BP is in range BMI result Body Mass Index 43.0 BMI Assessment/Plan discussion: High (One pound per week weight loss suggested) BMI High, discussed plan: lifestyle, weight reduction and dietary Tobacco/Smoking Status: Tobacco use Status Tobacco use date assessed 01/24/25 01/24/25 13:46 Patient Tobacco Use Status Former Tobacco user 01/24/25 13:43 Tobacco use type Cigarette 01/24/25 13:43 e-Cigarette/Vaping Use Former Use 01/24/25 13:52 PHQ-9: PHQ-9 Score PHQ-9: Total score 0 01/24/25 13:46 Depression Screening Interpretation: Negative Thrive Assessment: Date of Thrive Assessment Date Thrive assessed 01/24/25 01/24/25 13:46 Currently or been in a relationship where the following occur: I choose not to answer Advance Care Planning discussion: Exists, not on file Date of discussion: 01/24/25 Who was present: Patient Forms completed: Health Care Proxy Time spent: 1-15 minutes, not on file Actual minutes spent: 5 Coding Level of Care Code New Pt Level 4 (23491) Complex EM visit Add On G2211 Diagnoses HTN (hypertension) I10 Hyperlipidemia E78.5 Additional Codes Vital Signs *Quality* - Advance Care Planning discussion: Exists, not on file ([id number]) Vital Signs *Quality* - Time spent: 1-15 minutes, not on file ([id number]) Assessment & Plan Assessment & Plan (1) HTN (hypertension): Code(s): I10 - Essential (primary) hypertension Category: Medical Plan: BP is in range. Continue meds at same dosage. (2) Hyperlipidemia: Code(s): E78.5 - Hyperlipidemia, unspecified Category: Medical Plan: BW revd. Will get the chol levels in the next blood draw Plan History of Present Illness The patient is a 64-year-old male presenting for follow-up on prediabetes and hyperlipidemia. He has been under regular surveillance for glycemic control and lipid profile, facilitated through blood work every four to six months. A significant alteration in statin therapy within the last two years has led to improved cholesterol levels, with interval checks thereafter. Recent lab work emphasizing glycemic control failed to incorporate cholesterol testing, warranting current reassessment. The patient manages medication refills effectively and maintains adequate driving function except under adverse weather conditions. Earwax accumulation is reported in relation to hearing aid use frequency. Social History - Retired from the [employer] after 37 years of service in 2014. - , resides with his . - Consumes alcohol moderately: approximately a case of beer per year and up to two bottles of wine per week. - Occasionally consumes [place] beer when visiting family. - No tobacco use reported. Review of Systems - General: Denies any concerns about health. - Neurological: Reports difficulty with nighttime driving in dark and rainy conditions; denies problems with regular nighttime driving. - EENT: Reports earwax accumulation linked to hearing aid usage. - Endocrine: Denies current symptoms related to diabetes. - Cardiovascular: Denies recent cholesterol checks in last blood work. Physical Exam General: Cooperative and healthy appearing Nutritional Appearance: Well nourished Orientation/consciousness: Patient oriented x3 Limitations: No limitations Head: Normal to inspection General: Appearance normal, both eyes and all related structures Neck: Normal visual inspection Chest: Normal palpation of entire chest wall Respiratory: N ormal respiratory effort Neurology: Patient oriented x3, no problem with driving at night except for discomfort with lights when it's dark and rainy. Results - Labs: No recent cholesterol levels were assessed in the blood work three weeks ago, specifically done for A1c assessment. Plan I will order blood work to evaluate the patient?s cholesterol levels missing from the recent panel to ensure the continued management of hyperlipidemia. The patient's prediabetes requires ongoing monitoring through glycated hemoglobin evaluations. Medication refills are currently adequate, with further refills facilitated through pharmacy coordination. I provided information on healthcare proxy and MOLST documentation, emphasizing the need to return the healthcare proxy form while retaining the MOLST form for personal records. Patient was informed and verbally consented to the use of an ambient scribe for clinic note documentation during this visit. Discussion Notes I discussed the importance of routine cholesterol monitoring, given its exclusion from recent lab assessments, necessitating current evaluation. The patient was advised of sufficient medication refills, with pharmacy-initiated refills for ease upon depletion. I provided instructions for obtaining and retaining healthcare proxy and MOLST documentation. Future follow-up should encompass ongoing lipid and glucose management to prevent potential disease progression. Encouragement was given regarding his current management practices and proactive approach towards health monitoring. Patient Instructions - Get blood work done for cholesterol at your preferred lab. - Continue monitoring blood sugar levels as advised. - For refills, contact your pharmacy directly when needed. - Review and manage healthcare proxy and MOLST documents, returning the proxy form to your healthcare provider. - Maintain current driving precautions and hearing aid use adjustments to minimize earwax buildup. Orders: Orders Complete Blood Count no Diff 05/15/25 E78.5 - Hyperlipidemia, unspecified, I10 - Essential (primary) hypertension Lipid Panel 05/15/25 E78.5 - Hyperlipidemia, unspecified, I10 - Essential (primary) hypertension Hemoglobin A1c 05/15/25 E78.5 - Hyperlipidemia, unspecified, I10 - Essential (primary) hypertension Liver Panel 05/15/25 E78.5 - Hyperlipidemia, unspecified, I10 - Essential (primary) hypertension Thyroid Stimulating Hormone 05/15/25 E78.5 - Hyperlipidemia, unspecified, I10 - Essential (primary) hypertension Basic Metabolic Panel 05/15/25 E78.5 - Hyperlipidemia, unspecified, I10 - Essential (primary) hypertension UA and rflx microscopic 05/15/25 E78.5 - Hyperlipidemia, unspecified, I10 - Essential (primary) hypertension Prostate Specific Antigen Scr 05/15/25 E78.5 - Hyperlipidemia, unspecified, I10 - Essential (primary) hypertension
--- OUTSIDE RECORDS SUMMARY | 2025-01-24 15:56 | XMS_ITS | Patient Health Record ---
Author Organization [facility] Address [address] [place] [address] Care Team Providers Care Crate Opener Name Role Phone Hardy MACHADO, Venkatesh Primary Care Provider Nasim Painter Jr Allergies No Known Allergies Results Component Value Reference Range Notes Pathology Reviewed date:02/07/2024 04:27:39 PM Interpretation: Performing Lab:[facility], [address] [place] [phone] Notes/Report: Name: Ruba Denson her Age/Sex: 63/M : 1960 Unit#: [id number] Attend Dr: Nasim Rizzo MD Re02/01/24 Status : [facility] Location: [facility] Disch: SPEC : [id number] RECD : 02/01/24-1352 STATUS: RL ANDREWS NUM: [id number] MEG: 02/01/24-[address] [facility] [address]: Nasim Rizzo MD ENTERED: 02/01/24 SP TYPE: Surgical OTHR DR: Venkatesh Dash MD ORDERED: HE Stain/12 , Gross Micro L4/4, IHC, Special st. 2/2, H. pylori, AB/PAS/2 Addendum Addendum 1 Entered: 02/07/24 Immunostain for H. p ylori is non-reactive (A). No change is made to the diagnosis. Addendum Signed ____ __(signature on file) Davon Harper MD 02/07/241315 Diagnosis A. Gastric antrum, b iopsy: Gastric antral mucosa with reactive changes, intestinal metaplasia, and mini mal chronic inactive gastritis; negative for dysplasia (see comment). B. Esophagogastric j unction, biopsy: Squamocolumnar mucosa with mild chronic inflammation; negati ve for intestinal metaplasia and dysplasia. C. Colon, at 80 cm, polyp: Tubular adenoma; negative for high-grade dysplasia and carcinoma. D. Colon, rectal omer yps, biopsy: Hyperplastic polyps (multiple pieces). Comment: (A): Immunostain for H. pylori pending; addendum to follow. Clinical History Pre-Op Dx: GERD, screening Post-Op Dx: GERD, colon polyps Microscopic Description Microscopic sections reviewed. AB/PAS on A is positive for intestinal metaplasia. AB/PAS on B is negative for in testinal metaplasia. Control stains appropriately. CONTINUED ON NEXT PAGE Name: Ruba Denson her Age/Sex: 63/M : 1960 [facility]#: [id number] Unit#: [id number] Attend Dr: Nasim Rizzo MD Re02/01/24 Status : [facility] Location: [facility] Disch: SPEC : [id number] RECD : 02/01/24-1352 STATUS: RL ANDREWS NUM: [id number] MEG: 02/01/24-[address] [facility] [address]: Nasim Rizzo MD ENTERED: 02/01/24-14 08 SP TYPE: Surgical OTHR DR: Venkatesh Dash MD ORDERED: HE Stain/12 , Gross Micro L4/4, IHC, Special st. 2/2, H. pylori, AB/PAS/2 Material Received A. Antral bx's B. EG junction C. Polyp at 80 cm D. Rectal polyps bx's Gross Description Received in 4 parts. Part A: Received in formalin labeled ?antral bx's? are 2 wu-pink irregular and rectangular tissue fragments pawan suring 0.3 and 0.4 cm, submitted in toto in a cassette labeled A. Part B: Received in formalin labeled ?eg junction? are 4 wu irregular and rectangular tissue fragments ran ging from 0.2-0 point 3 5 cm, submitted in toto in a cassette labeled B. Part C: Received in formalin labeled ?polyp at 80 cm? are 2 wu irregular tissue fragments measuring 0.2 and 0. 35 cm, submitted in toto in a cassette labeled C. Part D: Received in formalin labeled ?rectal polyps bx's? are 4 wu-pink irregular tissue fragments ranging fr om minute to 0.2 cm, submitted in toto in a cassette labeled DChristiane CEDNicholas Special studies orde red and performed: Immunostain for H. pylori on A1; AB/PAS stains on A1 and B1. Copies To: Nasim iRzzo MD [address] [place] [address] [id number] Her[place] [id number] Venkatesh Dash MD [address] [place] [address], [address] [place] [phone] Signed (si gnature on file) [facility] 02/02/24 251 CONTINUED ON NEXT PAGE Name: Ruba Denson her Age/Sex: 63/M : 1960 Unit#: [id number] Attend Dr: Nasim Rizzo MD Re02/01/24 Status : [facility] Location: [facility] Disch: SPEC : [id number] RECD : 02/01/24-1352 STATUS: RL ANDREWS NUM: [id number] MEG: 02/01/24-[address] [facility] [address]: Nasim Rizzo MD ENTERED: 02/01/24-14 08 SP TYPE: Surgical OTHR DR: Venkatesh Dash MD ORDERED: HE Stain/12 , Gross Micro L4/4, IHC, Special st. 2/2, H. pylori, AB/PAS/2 (signature on file) Davon Harper MD 02/07/24 1316 END OF REPORT Pathology Reviewed date:03/13/2024 08:58:28 AM Interpretation: Performing Lab:[facility], [address] [place] [phone] Notes/Report: Name: Ruba Denson her Age/Sex: 64/M : 1960 Unit#: [id number] Attend Dr: Nasim Rizzo MD Re03/07/24 Status : [facility] Location: [facility] Disch: SPEC : [id number] RECD : 03/07/24 STATUS: RL ANDREWS NUM: [id number] MEG: 03/07/24-[address]: Nasim Rizzo MD ENTERED: 03/07/2412 56 SP TYPE: Surgical OTHR DR: Venkatesh Dash MD ORDERED: Gross Micro L4/5, IHC/2, Special st. 2/5, H. pylori/2, AB/PAS/5 Diagnosis A. Gastric antrum, g reater curvature, biopsy: Gastric antral mucosa with congestion, mild reactive change s, and focal minimal chronic inactive inflammation; negative for H pylori, intestinal m etaplasia and dysplasia. B. Gastric antrum, l ezekiel curvature, biopsy: Gastric antral mucosa with reactive changes, focal minim al chronic inactive inflammation, and focal intestinal metaplasia; negative for dysplasia. C. Gastric angulari s, biopsy: Gastric body mucosa with features suggesting proton pump inhibitor effect and focal minimal chronic inactive inflammation; negative for intestinal metaplasia and dysplasia. D. Gastric body, gre ater curvature, biopsy: Gastric body mucosa with features suggesting proton pu mp inhibitor effect and focal minimal chronic inactive inflammation; negative for intesti nal metaplasia and dysplasia. E. Gastric body, les ser curvature, biopsy: Gastric body mucosa with focal minimal chronic inactive inf lammation, and features suggesting proton pump inhibitor effect with incipient fundic gla nd polyp formation; negative for H pylori, intestinal metaplasia and dysplasia. Clinical History Gastric intestinal m etaplasia, unspecified Microscopic Description Microscopic sections reviewed. Immunostains for H. pylori on A and E are negative. AB/PAS on A, C, D and E are negative for intestinal metaplasia. AB/PAS on B is positive for intestinal metaplasi a. Controls stain appropriately. Material Received A. Antrum greater curvature B. Antrum lesser curvature C. Angularis D. Body greater curvature E. Body lesser curvature CONTINUED ON NEXT PAGE Name: Ruba Denson her Age/Sex: 64/M : 1960 [id number] Unit#: [id number] Attend Dr: Nasim Rizzo MD Re03/07/24 Status : [facility] Location: [facility] Disch: SPEC : [id number] RECD : 03/07/24-1236 STATUS: RL ANDREWS NUM: [id number] MEG: 03/07/24-[address] [facility] [address]: Nasim Rizzo MD ENTERED: 03/07/24-12 56 SP TYPE: Surgical OTHR DR: Venkatesh Dash MD ORDERED: Gross Micro L4/5, IHC/2, Special st. 2/5, H. pylori/2, AB/PAS/5 Gross Description Received in five parts. Part A: Received in formalin labeled ?antrum greater curvature? are 2 wu-pink irregular tissue fragments eac h measuring 0.25 cm, submitted in toto in a cassette labeled A. Part B: Received in formalin labeled ?antrum lesser curvature? are 2 wu-pink irregular tissue fragments eac h measuring 0.25 cm, submitted in toto in a cassette labeled B. Part C: Received in formalin labeled ?angularis? are 2 wu-pink irregular and rectangular tissue fragments pawan suring 0.2 and 0.5 cm, submitted in toto in a cassette labeled C. Part D: Received in formalin labeled ?body greater curvature? are 4 wu-pink irregular and rectangular tissue f ragments ranging from 0.15 to 0.4 cm, submitted in toto in a cassette labeled D. Part E: Received in formalin labeled ?body lesser curvature are 2 wu-pink irregular and rectangular tissue f ragments measuring 0.3 and 0.45 cm, submitted in toto in a cassette labeled E. CEDS Special studies orde red and performed: Immunostain for H. pylori on A1 and E1; AB/PAS stains on A1, B1, C1, D1 and E1. Copies To: Nasim Rizzo MD [address] [place] [address] [address] [place] [address] Venkatesh Dash MD [address] [place] [address], [address] [place] [address] Signed (si gnature on file) [facility] 03/08/24 1611 END OF REPORT Reason For Referral No Information Medications Medication SIG (Take, Route, Frequency, Duration) Notes Start Date End Date Status Multivitamin - 1 tablet Orally Once a day for 30 day(s) Not-Taking MiraLax (colon prep) 17 GM/SCOOP mixed with Gatorade or Crystal Light Orally begin at 5:00 p.m. the day before the procedure for 1 day 12/16/2023 Active Omeprazole 20 MG 1 capsule 30 minutes before morning meal Orally Once a day for 30 day(s) Active Aspirin 81 81 MG 1 tablet Orally Once a day for 30 day(s) Active Lisinopril 10 MG 1 tablet Orally Once a day for 30 day(s) Active Vitamin D 50 MCG (1999 UT) 1 capsule Orally Once a day for 30 day(s) Active Atorvastatin Calcium 20 MG 1 tablet Orally Once a day for 30 day(s) Active Social History Tobacco Use: Social History Observation Description Date Details (start date - stop date) Former Smoker NA - NA Tobacco Use/Smoking Question Answer Notes Patient is a former smoker How long has it been since you last smoked? > 10 years Alcohol Screen Question Answer Notes Did you have a drink contain ing alcohol in the past year? Yes How often did you have a dri nk containing alcohol in the past year? 2 to 4 times a month (2 points) How many drinks did you have on a typical day when you were drinking in the past year? 3 or 4 drinks (1 point) How often did you have 6 or more drinks on one occasion in the past year? Never (0 point) Points 3 Interpretation Negative Section Notes: vapes Problems Problem Type SNOMED Code ICD Code Onset Dates Problem Status W/U Status Risk Notes Problem 500689951 Colon cancer screening (Z12.11) Active confirmed Problem 187945674 Gastroesophageal reflux disease, unspecified whether esophagitis present (K21.9) Active confirmed Problem Gastroesophageal reflux disease (disorder) (266293328) Chronic GERD (K21.9) Active confirmed Encounters Encounter Location Date Provider Diagnosis [facility] Outpatient [address] [place] [phone] 02/01/2024 Nasim Rizzo Jr Encounter for screening colonoscopy Z12.11 and Chronic GERD K21.9 [facility] Outpatient [address] [place] [phone] 03/07/2024 Nasim Rizzo Jr Gastric intestinal metaplasia K31.A0 [facility] [address] [place] [phone] 02/07/2024 Nasim Rizzo Jr [facility] [address] [place] [phone] 03/13/2024 Nasim Rizzo Jr Assessments Encounter Date Diagnosis (ICD Code) Assessment Notes Treatment Notes Treatment Clinical Notes Section Notes 02/01/2024 Encounter for screening colonoscopy (ICD-10 - Z12.11) 02/01/2024 Chronic GERD (ICD-10 - K21.9) 03/07/2024 Gastric intestinal metaplasia (ICD-10 - K31.A0) Plan Of Treatment Future Test Test Name Order Date UPPER GI ENDOSCOPY 12/16/2023 COLONOSCOPY 12/16/2023 Next Appt Details Provider Name:Nasim Domingo Mak whelan Jr, 03/15/2025 01:35:00 PM, [address], [address], [place], [address], Insurance Providers Payer Name Payer Address Payer Phone Subscriber Number Group Number Insured Name Patient Relationship to Insured Coverage Start Date Coverage End Date MEDICARE OF [facility] [address] [place] [address] [id number] PATRICIA DENSON Self - patient is the insured Medical (General) History Medical History History ICD Code Hypertension Hyperlipidemia Gastroesophageal reflux disease/esophage al spasm Colonoscopy 06/17, 2 polyps, five-year followup for family history of colon cancer. Surgical History Surgery Date(Month/Year) Tonsillectomy Hernia repair 1957 Vasectomy 1990
--- OUTSIDE RECORDS SUMMARY | 2025-01-24 15:56 | XMS_ITS ---
Author Organization [facility] Address [address] [place] [address] Care Team Providers Care Custom Studio Coordinator Name Role Phone Venkatesh Dash MD Primary Care Provider Nasim Painter Jr REASON FOR VISIT pathology Encounters Encounter Location Date Provider Diagnosis [facility] [address] [place] [address] 03/13/2024 Nasim Rizzo Jr Plan Of Treatment Next Appt Details Provider Name:Nasim whelan Jr, 03/15/2025 01:35:00 PM, [address], [address], [place], [address], Progress Notes * PATRICIA GIBSON VDOB:[birth year] (64 yo M)Acc No.[id number]:03/13/2024 Patient:?PATRICIA GIBSON V :1960???Age:64 Y???Sex:Male Address:[address] [facility] [place] [address] * true * Date:? Generated for Printi neeta/Sherrie/eTransmitting on:?01/24/2025 03:56 PM EDT
--- OUTSIDE RECORDS SUMMARY | 2025-01-24 15:56 | XMS_ITS ---
Author Organization [facility] Address [address] [place] [address] Care Team Providers Care Bacon Skinner Name Role Phone Hardy MACHADO, Venkatesh Primary Care Provider Nasim Painter Jr REASON FOR VISIT gastric intestinal metaplasia Encounters Encounter Location Date Provider Diagnosis [facility] Out[place] [address] [place] [phone] 03/07/2024 Nasim Rizzo Jr Gastric intestinal metaplasia K31.A0 Assessments Encounter Date Diagnosis (ICD Code) Assessment Notes Treatment Notes Treatment Clinical Notes Section Notes 03/07/2024 Gastric intestinal metaplasia (ICD-10 - K31.A0) Plan Of Treatment Next Appt Details Provider Name:Nasim whelan Jr, 03/15/2025 01:35:00 PM, [address], [address], [place], [address], Progress Notes * PATRICIA GIBSON VDOB:[birth year] (64 yo M)Acc No.[id number]:03/07/2024 EGD/MAC Patient:?PATRICIA GIBSON V Provider:?Nasim Rizzo MD :1960???Age:64 Y???Sex:Male Yunier e:03/07/2024 Address:[address] [place] [address] [id number] Pcp:Venkatesh Dash MD Subjective: * Chief Complaints: * ???1. Gastric intestinal met aplasia. * Medical History:? Objective: * Vitals:? Assessment: * Assessment: 1.?Gastric intestinal metapl masood - K31.A0 (Primary)??? Plan: * Treatment: * Procedure Codes:?02994 UPPER GI ENDOSCOPY, BIOPSY * * The named appointment provid er may or may not be the originator of this progress note, and it is not deemed complete until electronically signed by the appointment provider. Sign off status: Pending * Provider:?Nasim Rizzo MD Date:?0 03/07/2024 Generated for Julieth santacruz/Sherrie/Kobismitting on:?01/24/2025 03:56 PM EDT
--- OUTSIDE RECORDS SUMMARY | 2025-01-24 15:56 | XMS_ITS ---
Author Organization [facility] Address [address] [place] [address] Care Team Providers Care Slurry Tank Tender Name Role Phone Venkatesh Dash MD Primary Care Provider Nasim Painter Jr REASON FOR VISIT pathology Encounters Encounter Location Date Provider Diagnosis [facility] [address] [place] [address] 02/07/2024 Nasim Rizzo Jr Plan Of Treatment Next Appt Details Provider Name:Nasim whelan Jr, 03/15/2025 01:35:00 PM, [address], [address], [place], [address], Progress Notes * PATRICIA GIBSON VDOB:[birth year] (63 yo M)Acc No.[id number]:02/07/2024 Patient:?PATRICIA GIBSON V :1960???Age:63 Y???Sex:Male Address:[address] [facility] [place], [address] * true * Date:? Generated for Printi neeta/Sherrie/eTransmitting on:?01/24/2025 03:56 PM EDT
== END 2025-01-24 14:08 | disposition home or self-care (01) ==
LOC: HO.HMCHD 13:28
PROVIDERS: PCP Internal Medicine; Visit Provider Internal Medicine
DX: I10 Essential (primary) hypertension (principal); E78.5 Hyperlipidemia, unspecified; Z00.00 Encounter for general adult medical examination without abnormal findings

== ENCOUNTER → 2025-01-24 13:27 | Outpatient (BNVA) | payer MEDICARE, SELFPAY | PROVIDERS: PCP Internal Medicine; Visit Provider Internal Medicine | DX: I10 Essential (primary) hypertension (principal); E78.5 Hyperlipidemia, unspecified | CPT/HCPCS: 99202 ==

== ENCOUNTER 2025-05-30 09:14 | Outpatient (REF) | payer MEDICARE, SELFPAY ==
--- OUTSIDE RECORDS SUMMARY | 2024-02-01 08:30 | XMS_ITS ---
Author Organization [facility] Address [address] [place] [address] Care Team Providers Care Spoilage Worker Name Role Phone SHERON SCHNEIDER Primary Care Provider Nasim Griffin Jr REASON FOR VISIT gerd,screening Problems Problem Type SNOMED Code ICD Code Onset Dates Problem Status W/U Status Risk Notes Problem Chronic GERD (K21.9) Active confirmed Encounters Encounter Location Date Provider Diagnosis [facility] [place] [address] [place] [phone] 02/01/2024 Nasim Rizzo Jr Encounter for screening colonoscopy Z12.11 and Chronic GERD K21.9 Assessments Encounter Date Diagnosis (ICD Code) Assessment Notes Treatment Notes Treatment Clinical Notes Section Notes 02/01/2024 Encounter for screening colonoscopy (ICD-10 - Z12.11) 02/01/2024 Chronic GERD (ICD-10 - K21.9) Plan Of Treatment No Information Progress Notes * PATRICIA GIBSON VDOB:[birth year] (65 yo M)Acc No.[id number]:02/01/2024 EGD and COL/MAC Patient: PATRICIA MAURICE V Provider: Ulices Rizzo MD :1960 A ge:63 Y S ex:Male Date:02/01/2024 Address:[address] [place], [place] [id number] Pcp:SHERON SCHNEIDER Subjective: * Chief Complaints: * 1 . Gerd,screening. * Medical History: Objective: * Vitals: Assessment: * Assessment: 1. E ncounter for screening colonoscopy - Z12.11 (Primary) 2 . C hronic GERD - K21.9 Plan: * Treatment: * Procedure Codes: 4 5380 COLONOSCOPY AND BIOPSY, 0529F INTRVL 3+YRS PTS CLNSCP DOCD, [address] UPPER GI ENDOSCOPY, BIOPSY * * The named appointment provid er may or may not be the originator of this progress note, and it is not deemed complete until electronically signed by the appointment provider. Sign off status: Pending * Provider: Ulices Rizzo MD Date: 0 02/01/2024 Generated for Julieth santacruz/Sherrie/Tonyitting on: 0 05/30/2025 09:43 AM EDT
--- OUTSIDE RECORDS SUMMARY | 2024-03-07 07:50 | XMS_ITS ---
Author Organization [facility] Address [address] [place] [phone] Care Team Providers Care Tuber Operator Name Role Phone SHERON SCHNEIDER Primary Care Provider Nasim Griffin Jr REASON FOR VISIT gastric intestinal metaplasia Encounters Encounter Location Date Provider Diagnosis [facility] [place] [address] [place] [id number] 03/07/2024 Nasim Rizzo Jr Gastric intestinal metaplasia K31.A0 Assessments Encounter Date Diagnosis (ICD Code) Assessment Notes Treatment Notes Treatment Clinical Notes Section Notes 03/07/2024 Gastric intestinal metaplasia (ICD-10 - K31.A0) Plan Of Treatment No Information Progress Notes * PATRICIA GIBSON VDOB:[birth year] (65 yo M)Acc No.[id number]:03/07/2024 EGD/MAC Patient: Janene PATRICIA CYR V Provider: Ulices Rizzo MD :1960 A ge:64 Y S ex:Male Date:03/07/2024 Address:[address] [place] [address] [id number] Pcp:SHERON SCHNEIDER Subjective: * Chief Complaints: * [...] 03/07/2024 Generated for Julieth santacruz/Sherrie/Isabel on: 0 05/30/2025 09:43 AM EDT
--- OUTSIDE RECORDS SUMMARY | 2025-05-30 09:44 | XMS_ITS | Patient Health Record ---
Author Organization [facility] Address [address] [place] [address] Care Team Providers Care Clinical Psychiatrist Name Role Phone SHERON SCHNEIDER Primary Care Provider Nasim Griffin Jr [phone] Allergies No Known Allergies Reason For Referral No Information Medications Medication SIG (Take, Route, Frequency, Duration) Notes Start Date End Date Status Aspirin 81 81 MG 1 tablet Orally Once a day for 30 day(s) Active Lisinopril 10 MG 1 tablet Orally Once a day for 30 day(s) Active Vitamin D 50 MCG (1999) 1 capsule Ora lly Once a day for 30 day(s) Active Atorvastatin Calcium 20 MG 1 tablet Oral ly Once a day for 30 day(s) Active Omeprazole 20 MG 1 capsule 30 minutes before morning meal Orally Once a day for 30 day(s) Active Social History Tobacco Use: Social History Observation Description Date Details (start date - stop date) Former Smoker NA - NA Tobacco Use/Smoking Question Answer Notes Patient is a former smoker How long has it been since you last smoked? > 10 years AUDIT-C (Standard) Question Answer Notes Did you have a drink contain ing alcohol in the past year? Yes How often did you have a dri nk containing alcohol in the past year? 2 to 3 times a week (3 points) How many drinks did you have on a typical day when you were drinking in the past year? 3 or 4 drinks (1 point) How often did you have six o r more drinks on one occasion in the past year? Never (0 point) Points 4 Interpretation Positive Section Notes: vapes vapes drinks wine occasional beer Problems Problem Type SNOMED Code ICD Code Onset Dates Problem Status W/U Status Risk Notes Problem 609746978 Colon cancer screening (Z12.11) Active confirmed Problem 477770327 Gastroesophageal reflux disease, unspecified whether esophagitis present (K21.9) Active confirmed Problem Chronic GERD (K21.9) Active confirmed Vital Signs Blood pressure diastolic 77 mm Hg 03/15/2025 Height 69 in 03/15/2025 Blood pressure systolic 111 mm Hg 03/15/2025 Weight 285 lbs 03/15/2025 BMI 42.08 kg/m2 03/15/2025 Encounters Encounter Location Date Provider Diagnosis [facility] [address] [place] [phone] 03/15/2025 Nasim Rizzo Jr Gastroesophageal reflux disease, unspecified whether esophagitis present K21.9 ; Gastric intestinal metaplasia K31.A0 and Colon cancer screening Z12.11 [facility] [address] [place] [address] 03/15/2025 Nasim Rizzo Jr Assessments Encounter Date Diagnosis (ICD Code) Assessment Notes Treatment Notes Treatment Clinical Notes Section Notes 03/15/2025 Gastroesophageal reflux disease, unspecified whether esophagitis present (ICD-10 - K21.9) We discussed gastric intestinal metaplasia today. At this time he does not appear to have significant risk for stomach cancer based on the mapping findings. We reviewed this. Reflux symptoms are under good control on his present regimen. He will continue omeprazole 20 mg daily. We discussed diet, lifestyle modifications, and weight management regarding the treatment of reflux. Follow-up will be in 1 year. He is up-to-date on colorectal cancer screening. 03/15/2025 Gastric intestinal metaplasia (ICD-10 - K31.A0) We discussed gastric intestinal metaplasia today. At this time he does not appear to have significant risk for stomach cancer based on the mapping findings. We reviewed this. Reflux symptoms are under good control on his present regimen. He will continue omeprazole 20 mg daily. We discussed diet, lifestyle modifications, and weight management regarding the treatment of reflux. Follow-up will be in 1 year. He is up-to-date on colorectal cancer screening. 03/15/2025 Colon cancer screening (ICD-10 - Z12.11) We discussed gastric intestinal metaplasia today. At this time he does not appear to have significant risk for stomach cancer based on the mapping findings. We reviewed this. Reflux symptoms are under good control on his present regimen. He will continue omeprazole 20 mg daily. We discussed diet, lifestyle modifications, and weight management regarding the treatment of reflux. Follow-up will be in 1 year. He is up-to-date on colorectal cancer screening. Plan Of Treatment Future Test Test Name Order Date UPPER GI ENDOSCOPY 12/16/2023 COLONOSCOPY 12/16/2023 Insurance Providers Payer Name Payer Address Payer Phone Subscriber Number Group Number Insured Name Patient Relationship to Insured Coverage Start Date Coverage End Date MEDICARE OF [place] [address] [place] [address] [id number] PATRICIA GIBSON Self - patient is the insured Medical (General) History Medical History History ICD Code Hypertension Hyperlipidemia Gastroesophageal reflux disease/esophage al spasm Colonoscopy 01/25, hyperplastic polyp, 10 -year follow-up Gastric intestinal metaplasi a, mapping 03/27, metaplasia at 1 of 5 sites, no dysplasia Surgical History Surgery Date(Month/Year) Vasectomy 1990 Hernia repair 1957 Tonsillectomy
[2025-05-30 10:07] LABS: Hematocrit 49.0 % (42.0-52.0); Hemoglobin 15.8 g/dl (14.0-18.0); Mean Corpuscular HGB Conc 32.2 g/dl (31.0-36.0); Mean Corpuscular Hemoglobin 29.1 pg (27.0-33.0); Mean Corpuscular Volume 90.2 fL (80.0-98.0); NRBC Abs Auto 0.000 X10*3/uL (0.0-0.012); NRBC Pct Auto 0.0 /100WBC (0.0-0.2); Platelet Count 202 X10*3/uL (160-400); Red Blood Count 5.43 X10*6/uL (4.60-5.80); White Blood Count 8.2 X10*3/uL (4.8-10.8)
[2025-05-30 10:10] LABS: Appearance Urine Cloudy; Glucose Urine UA Negative (Negative); PH 5.5 (5.0-9.0); Specific Gravity - Urine 1.025 (1.005-1.025)
[2025-05-30 10:59] LABS: Albumin Level 4.4 g/dL (3.5-5.0); Alkaline Phosphatase 81 U/L (39-117); Anion Gap 11 (12-20); Aspartate Amino Transferase 47 U/L (5-37); Blood Urea Nitrogen 18 mg/dL (9-16); Calcium 9.6 mg/dL (8.4-10.2); Carbon Dioxide 29 mmol/L (22-29); Chloride 106 mmol/L (96-108); Cholesterol 209 mg/dL (<200); Estimated Glomerular Filt Rate > 60; HDL Cholesterol 45 mg/dL (>40); Hemoglobin A1C 230.5355 umol/L; Potassium 4.3 mmol/L (3.3-5.1); Sodium 142 mmol/L (135-145); Total Hemoglobin (HGBA1C) 4112.2967 umol/L; Total Protein 7.0 g/dL (6.5-8.0); Triglycerides 161 mg/dL (<150)
[2025-05-30 11:19] LABS: Thyroid Stimulating Hormone 0.67 uIU/mL (0.32-4.0)
[2025-05-30 11:33] LABS: Alanine Aminotransferase 75 U/L (0-40)
== END 2025-05-30 09:15 | disposition home or self-care (01) ==
LOC: HO.HMGCLDS 09:14
PROVIDERS: PCP Internal Medicine; Visit Provider Internal Medicine
DX: I10 Essential (primary) hypertension (principal); E78.5 Hyperlipidemia, unspecified; Z12.5 Encounter for screening for malignant neoplasm of prostate; Z13.1 Encounter for screening for diabetes mellitus
CPT/HCPCS: 36415; 80048; 80061; 80076; 81003; 83036; 84153; 84443; 85027

== ENCOUNTER 2025-06-06 12:58 | Outpatient (AMB) | payer MEDICARE, SELFPAY ==
--- OUTSIDE RECORDS SUMMARY | 2024-02-01 08:30 | XMS_ITS ---
Author Organization [facility] Address [address] [place] [address] Care Team Providers Care Plant Machinist Name Role Phone SHERON SCHNEIDER Primary Care Provider Nasim Griffin Jr [phone] REASON FOR VISIT gerd,screening Problems Problem Type SNOMED Code ICD Code Onset Dates Problem Status W/U Status Risk Notes Problem Gastroesophageal reflux disease (disorder) (093948349) Chronic GERD (K21.9) Active confirmed Encounters Encounter Location Date Provider Diagnosis [facility] [place] [address] [place], [place] [phone] 02/01/2024 Nasim Rizzo Jr Encounter for screening colonoscopy Z12.11 and Chronic GERD K21.9 Assessments Encounter Date Diagnosis (ICD Code) Assessment Notes Treatment Notes Treatment Clinical Notes Section Notes 02/01/2024 Encounter for screening colonoscopy (ICD-10 - Z12.11) 02/01/2024 Chronic GERD (ICD-10 - K21.9) Plan Of Treatment No Information Progress Notes * PATRICIA GIBSON VDOB:[birth year] (65 yo M)Acc No.[id number]:02/01/2024 EGD and COL/MAC Patient: PATRICIA MAURICE V Provider: Ulices Rizzo MD :1960 A ge:63 Y S ex:Male Date:02/01/2024 Address:[address] [place] [address] [facility] Pcp:SHERON SCHNEIDER Subjective: * Chief Complaints: * 1 . Gerd,screening. * Medical History: Objective: * Vitals: Assessment: * Assessment: 1. E ncounter for screening colonoscopy - Z12.11 (Primary) 2 . C hronic GERD - K21.9 Plan: * Treatment: * Procedure Codes: 4 5380 COLONOSCOPY AND BIOPSY, 0529F INTRVL 3+YRS PTS CLNSC[place] DOC[place], [address] UPPER GI ENDOSCOPY, BIOPSY * * The named appointment provid er may or may not be the originator of this progress note, and it is not deemed complete until electronically signed by the appointment provider. Sign off status: Pending * Provider: Ulices Rizzo MD Date: 0 02/01/2024 Generated for Julieth santacruz/Sherrie/Tonyitting on: 0 06/06/2025 03:19 PM EDT
--- OUTSIDE RECORDS SUMMARY | 2024-03-07 07:50 | XMS_ITS ---
Author Organization [facility] Address [address] [place] [address] Care Team Providers Care Pantry Goods Maker Name Role Phone SHERON SCHNEIDER Primary Care Provider Nasim Griffin Jr [phone] REASON FOR VISIT gastric intestinal metaplasia Encounters Encounter Location Date Provider Diagnosis [facility] [place] [address] [place] [phone] 03/07/2024 Nasim Rizzo Jr Gastric intestinal metaplasia K31.A0 Assessments Encounter Date Diagnosis (ICD Code) Assessment Notes Treatment Notes Treatment Clinical Notes Section Notes 03/07/2024 Gastric intestinal metaplasia (ICD-10 - K31.A0) Plan Of Treatment No Information Progress Notes * PATRICIA GIBSON VDOB:[birth year] (65 yo M)Acc No.[id number]:03/07/2024 EGD/MAC Patient: Janene PATRICIA CYR V Provider: Ulices Rizzo MD :1960 A ge:64 Y S ex:Male Date:03/07/2024 Address:[address] [place] [address] [facility] Pcp:SHERON SCHNEIDER Subjective: * Chief Complaints: * 1 . Gastric intestinal metaplasia. * Medical History: Objective: * Vitals: Assessment: * Assessment: 1. G astric intestinal metaplasia - K31.A0 (Primary) Plan: * Treatment: * Procedure Codes: 4 3239 UPPER GI ENDOSCOPY, BIOPSY * * The named appointment provid er may or may not be the originator of this progress note, and it is not deemed complete until electronically signed by the appointment provider. Sign off status: Pending * Provider: Ulices Rizzo MD Date: 0 03/07/2024 Generated for Julieth santacruz/Sherrie/Isabel on: 0 06/06/2025 03:20 PM EDT
--- NOTE | 2025-06-06 12:58 | A.OFFPC_ITS ---
Vital Signs 06/06/25 13:02 Height 5 ft 8 in Weight 286 lb BMI 43.5 BP 146/72 H Blood Pressure Location Rt brachial Position Sitting Respiration 20 Pulse 76 Pulse Source Pulse Oximeter Temp 96.9 F Temp Source Temporal Artery Scan Pulse Oximetry (%) 96 Oxygen Delivery Method Room Air Intake Visit Reasons: routine Fire Loss Prevention Engineer Required: No Accompanied by: Self / Same As Patient Allergies No Known Allergies (No Known Allergies*) Allergy (Verified 06/06/25 12:58) Tobacco use date assessed: 01/24/25 Fall risk assessment: No Falls in past year Last assessed Fall Risk: 06/06/25 Dental Screening Dental Screen Date: 01/24/25 HPI HPI Comments History of Present Illness Details The patient is a 65-year-old male presenting with chronic disease management needs, including hypertension, hyperlipidemia, and diabetes mellitus. The patient reported that his prescriptions were due for update and expressed the need to manage his cholesterol and glucose levels. A recent blood test indicated cholesterol levels were at 209 mg/dL, with an LDL of 132 mg/dL. An A1c test showed a level of 7.3%, indicating a diagnosis of diabetes mellitus as values above 6.5% are considered diabetic. The patient has a history of hypertension, which was previously well-controlled, but recently recorded pressures are elevated. He mentioned a weight gain since his last visit but did not specify the weight amount. The patient confirmed adherence to his blood pressure medications but reported not routinely checking his blood pressure at home. In terms of family history, the patient's mother had lung cancer and his father had colon cancer and is currently living with Alzheimer?s disease. He also mentioned a personal history of smoking for over 40 years, transitioning to vaping nearly a decade ago. He stated that he started smoking at age 10, and despite cutting nicotine, he still vapes. There was a discussion on the importance of lifestyle changes, including smoking cessation and dietary adjustments, to manage his cardiovascular risk factors, given his current health issues and family history. He denied any recent issues related to nausea, vomiting, chest pain, shortness of breath, headaches, diarrhea, or changes in urination or bowel habits. Medical History: - Essential Hypertension - Hyperlipidemia - Diabetes Mellitus (Type 2) - Obesity - Extensive smoking history, currently v aping Surgical History: - Endoscopy and colonoscopy in 2023 Medications: - Atorvastatin 20 mg for hyperlipidemia - Lisinopril for hypertension Family History: - Mother: Lung Cancer () - Father: Colon Cancer, Alzheimer?s Dise ase Social: - Vaped for nearly 10 years, previously smoked for over 40 years - Denied consistent physical activity - Noted dietary concerns contributing to weight gain - Currently vaping with minimal nicotine content PFSH Medical History (Updated 06/06/25 @ 13:20 by Juve Hills MD) Screening for lung cancer Diabetes Hyperlipidemia Elevated cholesterol HTN (hypertension) Peptic ulcer GERD (gastroesophageal reflux disease) Surgical History Hx of vasectomy Hx of hernia repair Hx of tonsillectomy H/O colonoscopy (~02/01/24) Family History (Updated 01/24/25 @ 13:52 by Jenny Miller MA) Mother No problems noted. Father No problems noted. Social History Housing: House Patient Tobacco Use Status: Former Tobacco user Tobacco use type: Cigarette e-Cigarette/Vaping Use: Former Use service: No Current occupational status: retired Cognitive needs: No Hearing needs: Yes (bilateral) Vision needs: Yes (rx glasses) Questionnaire Thrive Questionnaire Date Thrive assessed: 01/24/25 AUDIT C Alcohol Use Questionnaire (AUDIT-C) 1. How often do you have a drink containing alcohol?: 2-3 times a week 2. How many drinks containing alcohol do you have on a typical day when you are drinking?: 1 or 2 Total Score: 3 HAYLEE-7 AMB Questionnaire HAYLEE-7 Date HAYLEE - 7 assessed: 01/24/25 Source: Developed by Drs. Major Glez, Britta Huynh, Marciano Nixon and colleagues, with an educational paul from [employer]. Review of Systems Const Details: - Cardiovascular: Denies chest pain and shortness of breath. - Gastrointestinal: Denies nausea, vomiting, diarrhea; normal bowel habits. - Neurological: Denies headaches. - Respiratory: Denies wheezing; reports snoring. All systems reviewed & are unremarkable except as noted in HPI and below Physical exam (Primary Care) Vital Signs: Last Vital Signs Temp 96.9 F 06/06/25 13:02 Pulse 76 06/06/25 13:02 Resp 20 06/06/25 13:02 BP 146/72 H 06/06/25 13:02 Pulse Ox 96 06/06/25 13:02 Oxygen Delivery Method Room Air 06/06/25 13:02 BMI result Body Mass Index 43.5 Tobacco/Smoking Status: Tobacco use Status Tobacco use date assessed 01/24/25 06/06/25 13:06 Patient Tobacco Use Status Former Tobacco user 06/06/25 13:06 Tobacco use type Cigarette 06/06/25 13:06 e-Cigarette/Vaping Use Former Use 06/06/25 13:06 Are you ready to quit: Yes Tobacco cessation counseling provided: Yes Relapse Prevention: discussed the importance of a supportive environment CPT code: 90059 - 4-10 Minutes Thrive Assessment: Date of Thrive Assessment Date Thrive assessed 01/24/25 06/06/25 13:06 Const Other: General: +Alert and oriented, Well nourished, No acute distress. Eye: Pupils are equal, round and reactive to light, Intact accommodation, Extraocular movements are intact, Normal conjunctiva, Vision unchanged. HENT: Normocephalic, Atraumatic, Tympanic membranes are clear, Normal hearing, Oral mucosa is moist, No pharyngeal erythema, Ear canals patent. Respiratory: Lungs CTA bilaterally, No wheeze, Respirations are non-labored. Cardiovascular: Regular rate, Regular rhythm, S1 auscultated, S2 auscultated, No murmur, Good pulses equal in all extremities, Normal peripheral perfusion, No edema. Gastrointestinal: Soft, Non-tender, Non-distended, Normal bowel sounds, No organomegaly. Musculoskeletal: Normal range of motion, Normal strength, No tenderness, No swelling, No deformity, Normal gait. Integumentary: Warm, Dry, [place], Intact. Neurologic: Alert, Oriented, Normal sensory, Normal motor function, No focal defects, Cranial Nerves II-XII are grossly intact, Normal deep tendon reflexes. Psychiatric: Cooperative, Appropriate mood & affect, Normal judgment. Coding Level of Care Code Est Pt Level 4 (51551) Est Pt Prev Care >65y(76935) Diagnoses HTN (hypertension) I10 Hyperlipidemia E78.5 Diabetes E11.9 Screening for lung cancer Z12.2 Additional Codes Vital Signs *Quality* - CPT code: 05774 - 4-10 Minutes ([id number]) Assessment & Plan Assessment & Plan (1) HTN (hypertension): Comment: - Current medications include Lisinopril. - Recommend regular home blood pressure monitoring to assess control. - Plan to review regimen in a month and adjust medication if home pressures remain high. (elevated in clinic today) Code(s): I10 - Essential (primary) hypertension Category: Medical (2) Hyperlipidemia: Comment: - Current atorvastatin will be doubled to 40 mg due to inadequate control. - Discussed need for aggressive treatment due to cardiovascular risk factors. Code(s): E78.5 - Hyperlipidemia, unspecified Category: Medical (3) Diabetes: Comment: - Start Metformin 500 mg once daily. (A1c 7.3) - Emphasized importance of dietary management to control A1c levels. - Planned follow-up in a month for review and further management. Code(s): E11.9 - Type 2 diabetes mellitus without complications Category: Medical (4) Screening for lung cancer: Comment: - Lung cancer screening ordered due to smoking history (>40PPD) Code(s): Z12.2 - Encounter for screening for malignant neoplasm of respiratory organs Category: Medical Plan 5. Obesity - Dietary control and increased physical activity stressed. 6. Tobacco Use Disorder - Recommended cessation of vaping. - Offered smoking cessation support and patches if necessary. The patient and I discussed the chronic conditions and associated treatment plans, emphasizing the need to manage his hypertension, diabetes, and hyperlipidemia to reduce cardiovascular risk. We discussed the importance of doubling the atorvastatin dosage to 40 mg and starting metformin 500 mg daily. I explained that regular blood pressure monitoring is crucial to manage his hypertension effectively. I strongly advised quitting vaping entirely and offered smoking cessation support. Lung cancer screening was advised due to his extensive smoking history. We discussed the importance of dietary control and planned to review these interventions in one month. No current wheezing was reported, and snoring was determined to require observation and not immediate intervention. Orders: Orders CT lung screening Today Z12.2 - Encounter for screening for malignant neoplasm of respiratory organs Medications: New atorvastatin (Lipitor) 40 mg PO BEDTIME 90 tabs 0RF 90 days metformin 500 mg PO DAILY 30 tabs 0RF 30 days E11.9 - Type 2 diabetes mellitus without complications Changed From omeprazole 20 mg PO DAILY To omeprazole 20 mg PO DAILY 90 caps 0RF 90 days From lisinopril 10 mg PO DAILY To lisinopril 10 mg PO DAILY 90 tabs 0RF 90 days From aspirin 81 mg PO DAILY To aspirin 81 mg PO DAILY 90 tabs 0RF 90 days Patient Instructions: - Begin taking atorvastatin 40 mg daily for cholesterol. - Start metformin 500 mg daily for diabetes. - Measure and track your blood pressure at home and bring the readings to your next visit. - Maintain adherence to current blood pressure medication. - Implement dietary changes to support weight loss. - Stop vaping and use cessation aids if necessary. - Attend lung cancer screening as scheduled. - Follow up in one month to review blood pressure readings and overall health status.
[2025-06-06 13:02] VITALS: BP 146/72; PULSE 76; RESP 20; TEMP 36.1; O2SAT 96; BMI 43.5
--- OUTSIDE RECORDS SUMMARY | 2025-06-06 15:20 | XMS_ITS | Patient Health Record ---
Author Organization [facility] Address [address] [place] [address] Care Team Providers Care Faculty Criminal Justice Name Role Phone SHERON SCHNEIDER Primary Care Provider Nasim Griffin Jr Allergies No Known Allergies Reason For Referral [...] Problem Status W/U Status Risk Notes Problem [id number] Colon cancer screening (Z12.11) Active confirmed Problem [id number] Gastroesophageal reflux disease, unspecified whether esophagitis present (K21.9) Active confirmed Problem Gastroesophageal reflux disease (disorder) (609214208) Chronic GERD (K21.9) Active confirmed Vital Signs Blood pressure diastolic 77 mm Hg 03/15/2025 Height 69 in 03/15/2025 Blood pressure systolic 111 mm Hg 03/15/2025 Weight 285 lbs 03/15/2025 BMI 42.08 kg/m2 03/15/2025 Encounters Encounter Location Date Provider Diagnosis [facility] [address] [place] [id number] 03/15/2025 Nasim Rizzo Jr Gastroesophageal reflux disease, unspecified whether esophagitis present K21.9 ; Gastric intestinal metaplasia K31.A0 and Colon cancer screening Z12.11 [facility] [address] [place] [id number] 03/15/2025 Nasim Rizzo Jr Assessments Encounter Date [...] [place] [address] [place] [address] [id number] PATRICIA GIBSON Self - patient is the insured Medical (General) History Medical History History ICD Code Hypertension Hyperlipidemia Gastroesophageal reflux disease/esophage al spasm Colonoscopy 01/25, hyperplastic polyp, 10 -year follow-up Gastric intestinal metaplasi a, mapping 03/27, metaplasia at 1 of 5 sites, no dysplasia Surgical History Surgery Date(Month/Year) Vasectomy 1990 Hernia repair 1957 Tonsillectomy
== END 2025-06-06 13:39 | disposition home or self-care (01) ==
LOC: HO.HMCHD 12:58
PROVIDERS: PCP Student in an Organized Health Care Education/Training Program; Visit Provider Student in an Organized Health Care Education/Training Program
DX: I10 Essential (primary) hypertension (principal); E78.5 Hyperlipidemia, unspecified; E11.69 Type 2 diabetes mellitus with other specified complication; Z12.2 Encounter for screening for malignant neoplasm of respiratory organs

== ENCOUNTER → 2025-06-06 12:58 | Outpatient (BNVA) | payer MEDICARE, SELFPAY | PROVIDERS: PCP Internal Medicine; Visit Provider Student in an Organized Health Care Education/Training Program | DX: I10 Essential (primary) hypertension (principal); E78.5 Hyperlipidemia, unspecified; E11.9 Type 2 diabetes mellitus without complications; E66.9 Obesity, unspecified; Z68.41 Body mass index [BMI] 40.0-44.9, adult; Z72.0 Tobacco use; Z79.899 Other long term (current) drug therapy | CPT/HCPCS: 99212 ==

== ENCOUNTER 2025-08-01 13:28 | Outpatient (AMB) | payer MEDICARE, SELFPAY ==
--- OUTSIDE RECORDS SUMMARY | 2024-02-01 08:30 | XMS_ITS ---
Author Organization [facility] Address [address] [place] [address] Care Team Providers Care Broadcast Maintenance Technician Name Role Phone SHERON SCHNEIDER Primary Care Provider Nasim Griffin Jr [phone] REASON FOR VISIT gerd,screening Problems Problem Type SNOMED Code ICD Code Onset Dates Problem Status W/U Status Risk Notes Problem Gastroesophageal reflux disease (disorder) (210329124) Chronic GERD (K21.9) Active confirmed Encounters Encounter Location Date Provider Diagnosis [facility] [place] [address] [place], [place] [phone] 02/01/2024 Nasim Rizzo Jr Encounter for screening colonoscopy Z12.11 and Chronic GERD K21.9 Assessments Encounter Date Diagnosis (ICD Code) Assessment Notes Treatment Notes Treatment Clinical Notes Section Notes 02/01/2024 Encounter for screening colonoscopy (ICD-10 - Z12.11) 02/01/2024 Chronic GERD (ICD-10 - K21.9) Plan Of Treatment No Information Progress Notes * PATRICIA GIBSON VDOB:[birth year] (65 yo M)Acc No.[id number]:02/01/2024 EGD and COL/MAC Patient: PATRICIA MAURICE V Provider: Ulices Rizzo MD :1960 A ge:63 Y S ex:Male Date:02/01/2024 Address:[address] [place] [address] [id number] Pcp:SHERON SCHNEIDER Subjective: * Chief Complaints: * 1 . Gerd,screening. * Medical History: Objective: * Vitals: Assessment: * Assessment: 1. E ncounter for screening colonoscopy - Z12.11 (Primary) 2 . C hronic GERD - K21.9 Plan: * Treatment: * Procedure Codes: 4 5380 COLONOSCOPY AND BIOPSY, 0529F INTRVL 3+YRS [place]SC[place], [address] UPPER GI ENDOSCOPY, BIOPSY * * The named appointment provid er may or may not be the originator of this progress note, and it is not deemed complete until electronically signed by the appointment provider. Sign off status: Pending * Provider: Ulices Rizzo MD Date: 0 02/01/2024 Generated for Julieth santacruz/Sherrie/Tonyitting on: 05:19 PM EDT
--- OUTSIDE RECORDS SUMMARY | 2024-03-07 07:50 | XMS_ITS ---
Author Organization [facility] Address [address] [place] [phone] Care Team Providers Care Radio Interference Investigator Name Role Phone SHERON SCHNEIDER Primary Care Provider Nasim Griffin Jr [phone] REASON FOR VISIT gastric intestinal metaplasia Encounters Encounter Location Date Provider Diagnosis [facility] [place] [address] [place] [phone] 03/07/2024 Nasim Rizzo Jr Gastric intestinal metaplasia K31.A0 Assessments Encounter Date Diagnosis (ICD Code) Assessment Notes Treatment Notes Treatment Clinical Notes Section Notes 03/07/2024 Gastric intestinal metaplasia (ICD-10 - K31.A0) Plan Of Treatment No Information Progress Notes * PATRICIA GIBSON VDOB:[birth year] (65 yo M)Acc No.[id number]:03/07/2024 EGD/MAC Patient: Janene PATRICIA CYR V Provider: Ulices Rizzo MD :1960 A ge:64 Y S ex:Male Date:03/07/2024 Address:[address] [place] [address] [id number] Pcp:SHERON SCHNEIDER Subjective: * Chief Complaints: * [...] 0 03/07/2024 Generated for Julieth santacruz/Sherrie/Isabel on: 05:19 PM EDT
[2025-08-01 13:31] VITALS: BP 175/81; PULSE 76; TEMP 36.4; O2SAT 98; BMI 41.8
--- NOTE | 2025-08-01 13:31 | A.OFFPC_ITS ---
Vital Signs 08/01/25 13:31 08/01/25 13:41 Height 5 ft 8 in Weight 275 lb BMI 41.8 BP 175/81 H 167/79 H Blood Pressure Location Rt brachial Lt brachial Position Sitting Sitting Pulse 76 Pulse Source Pulse Oximeter Temp 97.6 F Temp Source Temporal Artery Scan Pulse Oximetry (%) 98 Oxygen Delivery Method Room Air Intake Visit Reasons: f/u lisinopril Flake Miller [employer] Oats Required: No Accompanied by: Self / Same As Patient Allergies No Known Allergies (No Known Allergies*) Allergy (Verified 08/01/25 13:31) Tobacco use date assessed: 08/01/25 Fall risk assessment: 1 Fall in past year Last assessed Fall Risk: 08/01/25 Dental Screening Dental Screen Date: 08/01/25 Did you have a dental visit in the last 12 months?: Yes Did you have a dental problem in the last 6 months where you did not have access to dental care?: No HPI HPI Comments History of Present Illness Details The patient is a 65-year-old male presenting for follow-up and management of uncontrolled hypertension. He has been monitoring his blood pressure at home with a wrist cuff, with readings reportedly in the 170s. The patient states that the wrist cuff reads approximately 20-25 points higher than a standard cuff, which would place his home readings in the 150s. He checks his blood pressure in the morning before taking medication and again in the evening around 6:00 or 7:00 PM before dinner. The patient also reports a severe right ankle sprain from a fall down the stairs about 3.5 weeks ago, for which he did not seek medical attention. He is now able to walk fairly well and bear weight, but uses a cane for support, especially in the morning due to stiffness. His medical history is significant for type 2 diabetes, with his last A1c being 7.3 three months ago, for which he takes metformin 500 mg. He also has a history of hypercholesterolemia treated with atorvastatin 40 mg, and acid reflux managed with omeprazole and aspirin. The patient reports having made significant dietary changes, which has resulted in a weight loss of nearly 10 pounds before his fall and another 5 pounds since, totaling about 15 pounds in two months. He notes that since changing his diet and taking metformin, he no longer feels drowsy after meals. Medical History: - Type 2 Diabetes Mellitus, last HbA1c 7 .3 - Essential Hypertension - Hypercholesterolemia - Gastroesophageal Reflux Disease - Right ankle sprain, sustained approxim ately 3.5 weeks prior to visit Surgical History: - No prior surgical history was discusse d. Medications: - Lisinopril 10 mg for hypertension - Atorvastatin 40 mg for hypercholestero lemia - Metformin 500 mg for type 2 diabetes - Omeprazole for acid reflux - Aspirin Family History: - No family history was discussed. Diagnostic Results: - Labs: Last HbA1c was 7.3, approximatel y three months ago. - Home Monitoring: Blood pressure readin gs with a wrist cuff have been as high as 170s, which the patient believes are 20-25 points higher than an arm cuff. Social History: - Diet: The patient reports having signi ficantly changed his diet. - Weight Management: Has lost approximat liliane 15 pounds in the last two months primarily through dietary changes. - Alcohol Use: Reports drinking wine wit h dinner on 2-3 occasions recently. - Functional Status: Activity has been l imited for the past 3.5 weeks due to an ankle sprain. - He uses a cane for ambulation, particu larly in the morning due to stiffness. 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 [facility] Medical History (Updated 08/01/25 @ 14:12 by Juve Hills MD) Right ankle sprain Tubular adenoma of colon Personal history of nicotine dependence Diabetes Hyperlipidemia HTN (hypertension) Peptic ulcer GERD (gastroesophageal reflux disease) Surgical History History of esophagogastroduodenoscopy (EGD) History of colonoscopy Hx of vasectomy Hx of hernia repair Hx of tonsillectomy Family History (Updated 08/01/25 @ 13:44 by Jenny Miller MA) Mother No problems noted. Father No problems noted. Social History Housing: House Patient Tobacco Use Status: Former Tobacco user Tobacco use type: Cigarette e-Cigarette/Vaping Use: Former Use service: No Current occupational status: retired Cognitive needs: No Hearing needs: Yes (bilateral) Vision needs: Yes (rx glasses) Questionnaire PHQ-9 Over the last 2 weeks, how often have you been bothered by any of the following problems? 1. Little interest or pleasure in doing things: not at all 2. Feeling down, depressed, or hopeless: not at all 3. Trouble falling or staying asleep, or sleeping too much: not at all 4. Feeling tired or having little energy: not at all 5. Poor appetite or overeating: not at all 6. Feeling bad about yourself - or that you are a failure or have let yourself or your family down: not at all 7. Trouble concentrating on things, such as reading the newspaper or watching television: not at all 8. Moving or speaking so slowly that other people could have noticed. Or the opposite - being so fidgety or restless that you have been moving around a lot more than usual: not at all 9. Thoughts that you would be better off or of hurting yourself in some way: not at all Total score: 0 Source: Developed by Drs. Major Glez, Britta Huynh, Marciano Nixon and colleagues, with an educational paul from [email or web address]. Thrive Questionnaire Date Thrive assessed: 08/01/25 I am a: Patient Within the past 12 months, did the food you bought not last and you didn't have the money to get more?: Never true Within the past 12 months, did you worry whether your food would run out before you got money to buy more?: Never true Do you have trouble paying for medicines?: No Do you have trouble getting transportation to medical appointments?: No Do you have trouble paying your heating and electricity bill?: No Do you have trouble taking care of your child, family member or friend?: No Do you have trouble with day-to-day activities such as bathing, preparing meals, shopping, managing finances, etc.?: No Are you currently unemployed and looking for a job?: No Are you interested in more education?: No THRIVE Score: 0 AUDIT C Alcohol Use Questionnaire (AUDIT-C) 1. How often do you have a drink containing alcohol?: Monthly or less 2. How many drinks containing alcohol do you have on a typical day when you are drinking?: 1 or 2 3. How often do you have six or more drinks on one occasion?: Less than monthly Total Score: 2 HAYLEE-7 AMB Questionnaire HAYLEE-7 Date HAYLEE - 7 assessed: 08/01/25 Feeling nervous, anxious, or on edge: 0 = Not at all Not being able to stop or control worryin = Not at all Worrying too much about different things: 0 = Not at all Trouble relaxin = Not at all Being so restless that it is hard to sit still: 0 = Not at all Becoming easily annoyed or irritable: 0 = Not at all Source: Developed by Drs. Major Glez, Britta Huynh, Marciano Nixon and colleagues, with an educational paul from [email or web address]. Review of Systems Narrative - Constitutional: Reports weight loss of 15 pounds over two months. - Musculoskeletal: Reports right ankle is still a little puffy and feels stiff in the morning following a sprain 3.5 weeks ago. - Cardiovascular: Reports elevated home blood pressure readings. - Endocrine: Reports he no longer gets drowsy after eating since changing his diet. All systems reviewed & are unremarkable except as reviewed in HPI and above Physical exam (Primary Care) Vital Signs: Last Vital Signs Temp 97.6 F 08/01/25 13:31 Pulse 76 08/01/25 13:31 BP 167/79 H 08/01/25 13:41 Pulse Ox 98 08/01/25 13:31 Oxygen Delivery Method Room Air 08/01/25 13:31 BMI result Body Mass Index 41.8 Tobacco/Smoking Status: Tobacco use Status Tobacco use date assessed 08/01/25 08/01/25 13:33 Patient Tobacco Use Status Former Tobacco user 08/01/25 13:33 Tobacco use type Cigarette 08/01/25 13:33 e-Cigarette/Vaping Use Former Use 08/01/25 13:33 PHQ-9: PHQ-9 Score PHQ-9: Total score 0 08/01/25 13:45 Thrive Assessment: Date of Thrive Assessment Date Thrive assessed 08/01/25 08/01/25 13:33 Narrative General: Alert and oriented, Well nourished, No acute distress. Eye: Pupils are equal, round and reactive to light, Intact accommodation, Extraocular movements are intact, Normal conjunctiva, Vision unchanged. HENT: Normocephalic, Atraumatic, Tympanic membranes are clear, Normal hearing, Oral mucosa is moist, No pharyngeal erythema, Ear canals patent. Respiratory: Lungs CTA bilaterally, No wheeze, Respirations are non-labored. Cardiovascular: Regular rate, Regular rhythm, S1 auscultated, S2 auscultated, No murmur, Good pulses equal in all extremities, Normal peripheral perfusion, No edema. Gastrointestinal: Soft, Non-tender, Non-distended, Normal bowel sounds, No organomegaly. Musculoskeletal: Normal range of motion, Normal strength, No tenderness, Swelling noted in the left ankle, No deformity, Gait is assisted with a cane. Integumentary: Warm, Dry, [place], Intact. Neurologic: Alert, Oriented, Normal sensory, Normal motor function, No focal defects, Cranial Nerves II-XII are grossly intact, Normal deep tendon reflexes. Psychiatric: Cooperative, Appropriate mood & affect, Normal judgment. Coding Level of Care Code Est Pt Level 4 (14386) Complex EM visit Add On G2211 Diagnoses Primary hypertension I10 Hypertension type: primary hypertension Type 2 diabetes mellitus without complication, without long-term current use of insulin E11.9 Diabetes mellitus type: type 2 Diabetes mellitus detention insulin use: without terminal makeup operator use Diabetes mellitus complication status: without complication Other hyperlipidemia E78.49 Hyperlipidemia type: other hyperlipidemia Gastroesophageal reflux disease without esophagitis K21.9 Esophagitis presence: without esophagitis Sprain of right ankle, unspecified ligament, initial encounter S93.401A Encounter type: initial encounter Involved ligament of ankle: unspecified ligament Assessment & Plan Assessment & Plan (1) HTN (hypertension): Comment: - The patient's blood pressure remains uncontrolled on lisinopril 10 mg based on home readings. (170s at home and 170 in clinic today) - Plan is to increase lisinopril to 20 mg daily and add amlodipine 5 mg daily. - The patient will continue to monitor his blood pressure and has been advised about the risk of lightheadedness. Code(s): I10 - Essential (primary) hypertension Category: Medical Qualifiers: Hypertension type: primary hypertension Qualified Code(s): I10 - Essential (primary) hypertension (2) Diabetes: Comment: - Suboptimally controlled with a last HbA1c of 7.3. - The patient is on metformin 500 mg and is making progress with diet and weight loss. - Plan is to obtain blood work, including a new HbA1c, prior to the next visit. Code(s): E11.9 - Type 2 diabetes mellitus without complications Category: Medical Qualifiers: Diabetes mellitus type: type 2 Diabetes mellitus detention insulin use: without terminal makeup operator use Diabetes mellitus complication status: without complication Qualified Code(s): E11.9 - Type 2 diabetes mellitus without complications (3) Hyperlipidemia: Comment: - Managed with atorvastatin 40 mg. Plan is to continue the current medication. Code(s): E78.5 - Hyperlipidemia, unspecified Category: Medical Qualifiers: Hyperlipidemia type: other hyperlipidemia Qualified Code(s): E78.49 - Other hyperlipidemia (4) GERD (gastroesophageal reflux disease): Comment: - Managed with omeprazole. - Plan is to continue the current medication. Code(s): K21.9 - Gastro-esophageal reflux disease without esophagitis Category: Medical Qualifiers: Esophagitis presence: without esophagitis Qualified Code(s): K21.9 - Gastro-esophageal reflux disease without esophagitis (5) Right ankle sprain: Comment: - Patient sustained an injury 3.5 weeks ago and is improving. - He is weight-bearing with a cane. - Plan is continued conservative management. Code(s): S93.401A - Sprain of unspecified ligament of right ankle, initial encounter Category: Medical Qualifiers: Encounter type: initial encounter Involved ligament of ankle: unspecified ligament Qualified Code(s): S93.401A - Sprain of unspecified ligament of right ankle, initial encounter Plan: Health Maintenance: - Blood pressure control was discussed as a cheung factor in reducing overall cardiovascular risk and preventing kidney damage. - The patient is encouraged to continue his diet, as weight loss will have a positive influence on his blood pressure. - Lab monitoring for blood sugar is scheduled for 4 weeks. - The patient will continue taking aspirin for cardiovascular prevention. Patient was informed and verbally consented to the use of an ambient scribe for clinic note documentation during this visit. Plan I reviewed the patient's elevated home blood pressure readings and explained the necessity of adjusting his medications to better control his hypertension. This is important for reducing his long-term risk of heart disease, stroke, and kidney damage. I am increasing his lisinopril to 20 mg and adding amlodipine 5 mg, and have advised him to monitor a for potential lightheadedness. We discussed his recent ankle sprain, and since he is improving and mobile, no immediate intervention is required. I commended his significant progress with weight loss through diet, emphasizing its benefits for both his blood pressure and diabetes. I ordered labs to check his blood sugar control, to be done before his follow-up visit in 4 weeks. Orders: Orders Hemoglobin A1c 4 Weeks E11.9 - Type 2 diabetes mellitus without complications Medications: New lisinopril 20 mg PO DAILY 30 tabs 0RF amlodipine 5 mg PO DAILY 30 tabs 0RF Discontinued lisinopril Discontinued Reason: Doctor's Order 10 mg PO DAILY 90 days 90 tabs 0RF Patient Instructions: - Increase your lisinopril dose to 20 mg once a day. - Start new medication: amlodipine 5 mg, taken once a day. - If you start to feel lightheaded or dizzy, you can back off on the new dose of lisinopril or the amlodipine. Contact our office if this happens. - Continue taking your atorvastatin 40 mg, metformin 500 mg, omeprazole, and aspirin as you have been. - Continue checking your blood pressure at home for the next four weeks. - Continue with your diet modifications, as the weight loss is helping your health. - Please go to the lab to have your blood drawn one or two days before your next appointment. - Use your cane for support when walking, especially when your ankle feels stiff, to prevent another fall. - We have scheduled a follow-up appointment for you in four weeks.
[2025-08-01 13:41] VITALS: BP 167/79
--- OUTSIDE RECORDS SUMMARY | 2025-08-01 17:20 | XMS_ITS | Patient Health Record ---
Author Organization [facility] Address [address] [place] [address] Care Team Providers Care Cullet Trucker Name Role Phone SHERON SCHNEIDER Primary Care Provider Nasim Griffin Jr Allergies No Known Allergies Reason For Referral No Information Medications Medication SIG (Take, Route, Frequency, Duration) Notes Start Date End Date Status Aspirin 81 81 MG 1 tablet Orally Once a day; Duration: 30 day(s) Active Lisinopril 10 MG 1 tablet Orally Once a day; Duration: 30 day(s) Active Vitamin D 50 MCG (1999 UT) 1 capsule Ora lly Once a day; Duration: 30 day(s) Active Atorvastatin Calcium 20 MG 1 tablet Oral ly Once a day; Duration: 30 day(s) Active Omeprazole 20 MG 1 capsule 30 minutes before morning meal Orally Once a day; Duration: 30 day(s) Active Social History Tobacco Use: [...] Problem Status W/U Status Risk Notes Problem Colon cancer screening (861412838) Colon cancer screening (Z12.11) Active confirmed Problem Gastroesophageal reflux disease (438853997) Gastroesophageal reflux disease, unspecified whether esophagitis present (K21.9) Active confirmed Problem Gastroesophageal reflux disease (disorder) (687269050) Chronic GERD (K21.9) Active confirmed Vital Signs Blood pressure diastolic 77 mm Hg 03/15/2025 Height 69 in 03/15/2025 Blood pressure systolic 111 mm Hg 03/15/2025 Weight 285 lbs 03/15/2025 BMI 42.08 kg/m2 03/15/2025 Encounters Encounter Location Date Provider Diagnosis [facility] [address] [place] [id number] 03/15/2025 Nasim Rizzo Jr Gastroesophageal reflux disease, unspecified whether esophagitis present K21.9 ; Gastric intestinal metaplasia K31.A0 and Colon cancer screening Z12.11 [facility] [address] [place] [id number] 03/15/2025 Nasim Rizzo Jr Assessments Encounter Date [...] Start Date Coverage End Date MEDICARE OF [facility] [address] [place] [id number] PATRICIA GIBSON Self - patient is the insured Medical (General) History Medical History History ICD Code Hypertension Hyperlipidemia Gastroesophageal reflux disease/esophage al spasm Colonoscopy 01/25, hyperplastic polyp, 10 -year follow-up Gastric intestinal metaplasi a, mapping 03/27, metaplasia at 1 of 5 sites, no dysplasia Surgical History Surgery Date(Month/Year) Vasectomy 1990 Hernia repair 1957 Tonsillectomy
== END 2025-08-01 14:09 | disposition home or self-care (01) ==
LOC: HO.HMCHD 13:28
PROVIDERS: PCP Internal Medicine; Visit Provider Student in an Organized Health Care Education/Training Program
DX: I10 Essential (primary) hypertension (principal); E11.9 Type 2 diabetes mellitus without complications; E78.49 Other hyperlipidemia; K21.9 Gastro-esophageal reflux disease without esophagitis; S93.401A Sprain of unspecified ligament of right ankle, initial encounter

== ENCOUNTER → 2025-08-01 13:28 | Outpatient (BNVA) | payer MEDICARE, SELFPAY | PROVIDERS: PCP Internal Medicine; Visit Provider Student in an Organized Health Care Education/Training Program | DX: I10 Essential (primary) hypertension (principal); E11.9 Type 2 diabetes mellitus without complications; E78.49 Other hyperlipidemia; K21.9 Gastro-esophageal reflux disease without esophagitis; S93.401A Sprain of unspecified ligament of right ankle, initial encounter; Z79.899 Other long term (current) drug therapy; W10.9XXA Fall (on) (from) unspecified stairs and steps, initial encounter; Y93.9 Activity, unspecified; Y92.9 Unspecified place or not applicable; Y99.9 Unspecified external cause status; Z13.30 Encounter for screening examination for mental health and behavioral disorders, unspecified; Z13.39 Encounter for screening examination for other mental health and behavioral disorders | CPT/HCPCS: 96127; 99212 ==

== ENCOUNTER 2025-08-29 09:41 | Outpatient (REF) | payer MEDICARE, SELFPAY ==
--- OUTSIDE RECORDS SUMMARY | 2024-03-07 06:50 | XMS_ITS ---
Author Organization [facility] Address [address] [place] [address] Care Team Providers Care Patient Resource Coordinator Name Role Phone SHERON SCHNEIDER Primary Care Provider Nasim Griffin Jr [phone] REASON FOR VISIT gastric intestinal metaplasia Encounters Encounter Location Date Provider Diagnosis [facility] [place] [address] [place] [phone] 03/07/2024 Nasim Rizzo Jr Gastric intestinal metaplasia K31.A0 Assessments Encounter Date Diagnosis (ICD Code) Assessment Notes Treatment Notes Treatment Clinical Notes Section Notes 03/07/2024 Gastric intestinal metaplasia (ICD-10 - K31.A0) Plan Of Treatment No Information Progress Notes * PATRICIA GIBSON VDOB:[birth year] (65 yo M)Acc No.[id number]:03/07/2024 EGD/MAC Patient: Janene PATRICIA CYR V Provider: Ulices Rizzo MD :1960 A ge:64 Y S ex:Male Date:03/07/2024 Address:[address] [place], [place] [id number] Pcp:SHERON SCHNEIDER Subjective: * Chief Complaints: * G astric intestinal metaplasia Assessment: * Assessment: 1. G astric intestinal metaplasia - K31.A0 (Primary) Plan: * Procedure Codes: 4 3239 UPPER GI ENDOSCOPY, BIOPSY Billing Information: * Procedure Codes: 58338 UPPER GI ENDOSCOPY, BIOPSY. * The named appointment provid er may or may not be the originator of this progress note, and it is not deemed complete until electronically signed by the appointment provider. Sign off status: Pending * Provider: Ulices Rizzo MD Date: 0 03/07/2024 Generated for Julieth santacruz/Sherrie/Isabel on: 10/29/2024 11:01 AM EST
--- OUTSIDE RECORDS SUMMARY | 2025-08-29 11:01 | XMS_ITS | Patient Health Record ---
Author Organization [facility] Address [address] [place] [address] Care Team Providers Care Industrial Designer Name Role Phone SHERON SCHNEIDER Primary Care Provider Nasim Griffin Jr Allergies No Known Allergies Reason For Referral No Information Medications Medication SIG (Take, Route, Frequency, Duration) Notes Start Date End Date Status Aspirin 81 81 MG Tablet Delayed Release 1 tablet Orally Once a day; Duration: 30 day(s) Active Lisinopril 10 MG Tablet 1 tablet Orally Once a day; Duration: 30 day(s) Active Vitamin D 50 MCG (2000 UT) Capsule 1 capsule Orally Once a day; Duration: 30 day(s) Active Atorvastatin Calcium 20 MG Tablet 1 tablet Orally Once a day; Duration: 30 day(s) Active Omeprazole 20 MG Capsule Delayed Release 1 capsule 30 minutes before morning meal Orally Once a day; Duration: 30 day(s) Active Social History Tobacco Use: Social History Observation Description Date Details (start date - stop date) Former Smoker NA - NA Social History Drug/Alcohol: Social Info Question Answer Notes AUDIT-C (Standard) Did you have a drink containing alcohol in the past year? Yes How often did you have a drink containing alcohol in the past year? 2 to 3 times a week (3 points) How many drinks did you have on a typical day when you were drinking in the past year? 3 or 4 drinks (1 point) How often did you have six or more drinks on one occasion in the past year? Never (0 point) Points 4 Interpretation Positive Tobacco Use: Social Info Question Answer Notes Tobacco Use/Smoking Patient is a former smoker How long has it been since you last smoked? > 10 years Additional Details Category Social Info Options Details Miscellaneous: Marital status: Occupation: He is retired fr om the [employer] Section Notes: vapes vapes drinks wine occasional beer Problems Problem Type SNOMED Code ICD Code Onset Dates Problem Status W/U Status Risk Notes Problem Colon cancer screening (803434832) Colon cancer screening (Z12.11) Active confirmed Problem Gastroesophageal reflux disease (684275825) Gastroesophageal reflux disease, unspecified whether esophagitis present (K21.9) Active confirmed Problem Gastroesophageal reflux disease (disorder) (397047174) Chronic GERD (K21.9) Active confirmed Vital Signs Blood pressure diastolic 77 mm Hg 03/15/2025 Height 69 in 03/15/2025 Blood pressure systolic 111 mm Hg 03/15/2025 Weight 285 lbs 03/15/2025 BMI 42.08 kg/m2 03/15/2025 Encounters Encounter Location Date Provider Diagnosis [facility] [address] [place] [address] 03/15/2025 Nasim Rizzo Jr Gastroesophageal reflux disease, unspecified whether esophagitis present K21.9 ; Gastric intestinal metaplasia K31.A0 and Colon cancer screening Z12.11 [facility] [address] [place] [address] 03/15/2025 Nasim Rizzo Jr Assessments Encounter Date [...] Date MEDICARE OF [place] [address] [place] [address] [id number] PATRICIA GIBSON Self - patient is the insured Medical (General) History Medical History History ICD Code Hypertension Hyperlipidemia Gastroesophageal reflux disease/esophage al spasm Colonoscopy 01/25, hyperplastic polyp, 10 -year follow-up Gastric intestinal metaplasi a, mapping 03/27, metaplasia at 1 of 5 sites, no dysplasia Surgical History Surgery Date(Month/Year) Tonsillectomy Hernia repair 1957 Vasectomy 1990
== END 2025-08-29 09:42 | disposition home or self-care (01) ==
LOC: HO.HMGCLDS 09:41
PROVIDERS: PCP Student in an Organized Health Care Education/Training Program; Visit Provider Student in an Organized Health Care Education/Training Program
DX: E11.9 Type 2 diabetes mellitus without complications (principal)
CPT/HCPCS: 36415; 83036

== ENCOUNTER 2025-09-05 13:54 | Outpatient (AMB) | payer MEDICARE, SELFPAY ==
--- OUTSIDE RECORDS SUMMARY | 2024-03-07 06:50 | XMS_ITS ---
Author Organization [facility] Address [address] [place] [phone] Care Team Providers Care Tanbark Peeler Name Role Phone SHERON SCHNEIDER Primary Care Provider Nasim rGiffin Jr REASON FOR VISIT gastric intestinal metaplasia Encounters Encounter Location Date Provider Diagnosis [facility] [place] [address] [place] [phone] 03/07/2024 Nasim Rizzo Jr Gastric intestinal metaplasia K31.A0 Assessments Encounter Date Diagnosis (ICD Code) Assessment Notes Treatment Notes Treatment Clinical Notes Section Notes 03/07/2024 Gastric intestinal metaplasia (ICD-10 - K31.A0) Plan Of Treatment No Information Progress Notes * PATRICIA GIBSON VDOB:[birth year] (65 yo M)Acc No.[id number]:03/07/2024 EGD/MAC Patient: Janene PATRICIA CYR V Provider: Ulices Rizzo MD :1960 A ge:64 Y S ex:Male Date:03/07/2024 Address:[address] [place], [place] [id number] Pcp:SHERON SCHNEIDER Subjective: * Chief Complaints: * G astric intestinal metaplasia Assessment: * Assessment: 1. G astric intestinal metaplasia - K31.A0 (Primary) Plan: * Procedure Codes: 4 3239 UPPER GI ENDOSCOPY, BIOPSY Billing Information: * Procedure Codes: 72658 UPPER GI ENDOSCOPY, BIOPSY. * The named appointment provid er may or may not be the originator of this progress note, and it is not deemed complete until electronically signed by the appointment provider. Sign off status: Pending * Provider: Ulices Rizzo MD Date: 0 03/07/2024 Generated for Julieth santacruz/Sherrie/Isabel on: 11/06/2024 04:41 PM EST
--- NOTE | 2025-09-05 13:57 | MHC.PC.OV ---
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 Accompanied by: Self / Same As Patient Allergies No Known Allergies (No Known Allergies*) Allergy (Verified 09/05/25 13:57) Medication List - Last Reconciled 09/05/25 by Juve Hills MD amlodipine 5 mg PO DAILY 90 days aspirin 81 mg PO DAILY 90 days atorvastatin (Lipitor) 40 mg PO BEDTIME 90 days cholecalciferol (vitamin D3) (Vitamin D3) 50 mcg PO DAILY lisinopril 20 mg PO DAILY 90 days metformin 500 mg PO DAILY 90 days omeprazole 20 mg PO DAILY 90 days Tobacco use date assessed: 08/01/25 Fall risk assessment: No Falls in past year Last assessed Fall Risk: 09/05/25 Dental Screening Dental Screen Date: 08/01/25 HPI HPI Comments History of Present Illness Details History of Present Illness The patient is a 65 year old individual presenting for a follow-up visit for management of chronic conditions. The patient is feeling much better and reports significant improvement in blood sugar levels, with a recent HbA1c of 6%, down from 7.3%, which is the lowest it has been in four to five years. This improvement is attributed to taking metformin 500 mg. Regarding hypertension, the patient's home blood pressure readings have been around the 130s, and the in-office reading was 132/62 mmHg. The patient is on lisinopril 20 mg and amlodipine 5 mg. For hyperlipidemia, the patient is on atorvastatin 40 mg, with the last LDL cholesterol result being 132 mg/dL. The patient has been successful with weight loss, noting a 3-inch reduction in waist circumference and clothes fitting more loosely, although weight loss has slowed to 2 pounds in the last month due to inactivity from a sprained ankle. The ankle pain has resolved, but the patient reports a dull ache on the outside of the ankle bone if it is twisted or rolled sideways, which does not require pain medication. The patient uses a cane primarily for stability on stairs. The patient also takes omeprazole for acid reflux and aspirin for cardiovascular prevention. Medical History: - Type 2 Diabetes Mellitus - Essential Hypertension - Hyperlipidemia - Ankle Sprain - Gastroesophageal Reflux Disease Medications: - Lisinopril 20 mg for hypertension - Amlodipine 5 mg for hypertension - Metformin 500 mg for type 2 diabetes - Atorvastatin 40 mg for hyperlipidemia - Omeprazole for acid reflux - Aspirin for primary prevention of cardiovascular disease Diagnostic Results: - Labs: HbA1c is 6%, down from 7.3%. - Labs: Last LDL cholesterol was 132 mg/dL. Social History - Weight Management: The patient has been actively losing weight, resulting in a 3-inch reduction in waist size. - Nutritional Intake: The patient snacks on carrot and celery sticks. - Level of Activity: Activity has been limited recently due to an ankle sprain, which contributed to a slower rate of weight loss (2 pounds in the last month). - Functional Status: The patient uses a cane for stability when going up and down stairs. [facility] Medical History (Updated 09/05/25 @ 14:40 by Juve Hills MD) Overweight Right ankle sprain Tubular adenoma of colon Personal history of nicotine dependence Diabetes Hyperlipidemia HTN (hypertension) Peptic ulcer GERD (gastroesophageal reflux disease) Surgical History History of esophagogastroduodenoscopy (EGD) History of colonoscopy Hx of vasectomy Hx of hernia repair Hx of tonsillectomy Family History (Updated 08/01/25 @ 13:44 by Jenny Miller MA) Mother No problems noted. Father No problems noted. Social History Housing: House Patient Tobacco Use Status: Former Tobacco user Tobacco use type: Cigarette e-Cigarette/Vaping Use: Former Use service: No Current occupational status: retired Cognitive needs: No Hearing needs: Yes (bilateral) Vision needs: Yes (rx glasses) Questionnaire Thrive Questionnaire Date Thrive assessed: 08/01/25 AUDIT C Alcohol Use Questionnaire (AUDIT-C) 1. How often do you have a drink containing alcohol?: Monthly or less 2. How many drinks containing alcohol do you have on a typical day when you are drinking?: 1 or 2 3. How often do you have six or more drinks on one occasion?: Less than monthly Total Score: 2 HAYLEE-7 AMB Questionnaire HAYLEE-7 Date HAYLEE - 7 assessed: 08/01/25 Source: Developed by Drs. Major Glez, Britta Huynh, Marciano Nixon and colleagues, with an educational paul from [employer]. Review of Systems Narrative Review of Systems - Constitutional: Reports feeling better. - Musculoskeletal: Denies constant ankle pain but reports a dull ache on the outside ankle bone with twisting or rolling movements. - Gastrointestinal: Reports feeling hungry on an empty stomach. All systems reviewed & are unremarkable except as reviewed in HPI and above Physical exam (Primary Care) Vital Signs: Last Vital Signs Temp 97.2 F 09/05/25 14:03 Pulse 94 09/05/25 14:03 Resp 20 09/05/25 14:03 BP 132/62 09/05/25 14:03 Pulse Ox 96 09/05/25 14:03 Oxygen Delivery Method Room Air 09/05/25 14:03 BMI result Body Mass Index 41.8 Tobacco/Smoking Status: Tobacco use Status Tobacco use date assessed 08/01/25 09/05/25 14:00 Patient Tobacco Use Status Former Tobacco user 09/05/25 14:00 Tobacco use type Cigarette 09/05/25 14:00 e-Cigarette/Vaping Use Former Use 09/05/25 14:00 Thrive Assessment: Date of Thrive Assessment Date Thrive assessed 08/01/25 09/05/25 14:00 Narrative Physical Exam General: +Alert and oriented, Well nourished, No acute distress. Eye: Pupils are equal, round and reactive to light, Intact accommodation, Extraocular movements are intact, Normal conjunctiva, Vision unchanged. HENT: Normocephalic, Atraumatic, Tympanic membranes are clear, Normal hearing, Oral mucosa is moist, No pharyngeal erythema, Ear canals patent. Respiratory: Lungs CTA bilaterally, No wheeze, Respirations are non-labored. Cardiovascular: Regular rate, Regular rhythm, S1 auscultated, S2 auscultated, No murmur, Good pulses equal in all extremities, Normal peripheral perfusion, Mild swelling in legs, No edema. Gastrointestinal: Soft, Non-tender, Non-distended, Normal bowel sounds, No organomegaly. Musculoskeletal: Normal range of motion, Normal strength, No tenderness, No swelling, No deformity, Normal gait, Ankle with dull ache on twisting or rolling, No significant pain. Integumentary: Warm, Dry, [place], Intact. Neurologic: Alert, Oriented, Normal sensory, Normal motor function, No focal defects, Cranial Nerves II-XII are grossly intact, Normal deep tendon reflexes. Psychiatric: Cooperative, Appropriate mood & affect, Normal judgment. Coding Level of Care Code Est Pt Level 4 (07635) Complex visit Add On G2211 Diagnoses Type 2 diabetes mellitus without complication, without long-term current use of insulin E11.9 Diabetes mellitus type: type 2 Diabetes mellitus buttermaker continuous churn insulin use: without buttermaker continuous churn use Diabetes mellitus complication status: without complication Primary hypertension I10 Hypertension type: primary hypertension Other hyperlipidemia E78.49 Hyperlipidemia type: other hyperlipidemia Gastroesophageal reflux disease without esophagitis K21.9 Esophagitis presence: without esophagitis Sprain of right ankle, unspecified ligament, initial encounter S93.401A Encounter type: initial encounter Involved ligament of ankle: unspecified ligament Overweight E66.3 Assessment & Plan Assessment & Plan (1) Diabetes: Comment: - The patient's glycemic control has shown significant improvement, with HbA1c decreasing from 7.3% to 6.0%. - The patient will continue taking metformin 500 mg. - Continued weight loss is encouraged to further improve glucose control. Code(s): E11.9 - Type 2 diabetes mellitus without complications Category: Medical Qualifiers: Diabetes mellitus type: type 2 Diabetes mellitus intermediate insulin use: without buttermaker continuous churn use Diabetes mellitus complication status: without complication Qualified Code(s): E11.9 - Type 2 diabetes mellitus without complications (2) HTN (hypertension): Comment: - Blood pressure is well-controlled at 132/62 mmHg on the current regimen. - The patient will continue lisinopril 20 mg and amlodipine 5 mg. - The patient is advised to continue monitoring blood pressure at home two to three times per week. Code(s): I10 - Essential (primary) hypertension Category: Medical Qualifiers: Hypertension type: primary hypertension Qualified Code(s): I10 - Essential (primary) hypertension (3) Hyperlipidemia: Comment: - The last LDL cholesterol was 132 mg/dL, which is above the goal of under 100 mg/dL. - The patient will continue atorvastatin 40 mg. Future lab work will be monitored to assess for improvement. Code(s): E78.5 - Hyperlipidemia, unspecified Category: Medical Qualifiers: Hyperlipidemia type: other hyperlipidemia Qualified Code(s): E78.49 - Other hyperlipidemia (4) GERD (gastroesophageal reflux disease): Comment: - The patient will continue taking omeprazole. - It is anticipated that continued weight loss will help alleviate acid reflux symptoms. Code(s): K21.9 - Gastro-esophageal reflux disease without esophagitis Category: Medical Qualifiers: Esophagitis presence: without esophagitis Qualified Code(s): K21.9 - Gastro-esophageal reflux disease without esophagitis (5) Right ankle sprain: Comment: - The patient has residual symptoms of a dull ache with specific movements. - An ankle brace was suggested for support to help compress the area. Code(s): S93.401A - Sprain of unspecified ligament of right ankle, initial encounter Category: Medical Qualifiers: Encounter type: initial encounter Involved ligament of ankle: unspecified ligament Qualified Code(s): S93.401A - Sprain of unspecified ligament of right ankle, initial encounter (6) Overweight: Comment: - The patient has made commendable progress with weight loss. - The patient will continue with diet and lifestyle modifications to promote further weight reduction, which will positively impact blood pressure, glucose control, and acid reflux. Code(s): E66.3 - Overweight Category: Medical Plan: Health Maintenance: - Preventative Care: Continue daily aspirin for primary prevention of cardiovascular disease. - Healthy Lifestyle: Emphasis on continued weight loss through diet and exercise, which will positively impact blood pressure, glucose control, and acid reflux. - Screening: Follow-up blood tests ordered for today. - Home Monitoring: Advised to check blood pressure at home 2-3 times per week. - Follow-up: Scheduled to return in 4 months for re-evaluation. Patient was informed and verbally consented to the use of an ambient scribe for clinic note documentation during this visit. Plan I reviewed the patient's recent lab results, noting the excellent improvement in the HbA1c to 6.0 and the well-controlled blood pressure of 132/62 mmHg. We discussed that the current medication regimen for diabetes and hypertension is working perfectly and will be continued without changes. I commended the patient on the significant weight loss and explained that continuing this progress is the cheung to improving blood pressure, blood sugar, and acid reflux. We discussed maintaining atorvastatin 40 mg for cholesterol, with a goal of getting the LDL below 100. Regarding the ankle, I recommended an ankle brace for support during recovery. I emphasized the importance of taking ownership of these conditions by continuing to monitor blood pressure at home. We scheduled a follow-up visit in four months and arranged for blood tests to be done today. Orders: Orders Hemoglobin A1c 4 Months E11.9 - Type 2 diabetes mellitus without complications Patient Instructions: - Keep taking all of your current medications as prescribed, including those for blood pressure (Lisinopril, Amlodipine), diabetes (Metformin), cholesterol (Atorvastatin), acid reflux (Omeprazole), and heart protection (Aspirin). - Continue to check your blood pressure at home two or three times a week. - Your hard work on losing weight is paying off. Keep up the good work, as this helps your blood pressure, blood sugar, and acid reflux. - For your ankle, you can use a supportive ankle brace, which feels like a tight sock, to give it extra support and help it feel better. - You will need to get some blood tests done today. - Plan to come back for a follow-up appointment in four months, around December.
[2025-09-05 14:03] VITALS: BP 132/62; PULSE 94; RESP 20; TEMP 36.2; O2SAT 96; BMI 41.8
--- OUTSIDE RECORDS SUMMARY | 2025-09-05 16:41 | XMS_ITS | Patient Health Record ---
Author Organization [facility] Address [address] [place] [address] Care Team Providers Care Meat Boner Name Role Phone SHERON SCHNEIDER Primary Care [...] Occupation: He is retired fr om the [employer] Section Notes: vapes vapes drinks wine occasional beer Problems Problem Type SNOMED Code ICD Code Onset Dates Problem Status W/U Status Risk Notes Problem Colon cancer screening (242556419) Colon cancer screening (Z12.11) Active confirmed Problem Gastroesophageal reflux disease (849981400) Gastroesophageal reflux disease, unspecified whether esophagitis present (K21.9) Active confirmed Problem Gastroesophageal reflux disease (disorder) (101223509) Chronic GERD (K21.9) Active confirmed Vital Signs Blood pressure diastolic 77 mm Hg 03/15/2025 Height 69 in 03/15/2025 Blood pressure systolic 111 mm Hg 03/15/2025 Weight 285 lbs 03/15/2025 BMI 42.08 kg/m2 03/15/2025 Encounters Encounter Location Date Provider Diagnosis [facility] [address] [place] [address] 03/15/2025 Nasim Rizzo Jr Gastroesophageal reflux disease, unspecified whether esophagitis present K21.9 ; Gastric intestinal metaplasia K31.A0 and Colon cancer screening Z12.11 [facility] [address] [place] [address] 03/15/2025 Nasim Rizzo Jr Assessments Encounter Date [...] Date MEDICARE OF [place] [address] [place] [address] [id number] PATRICIA GIBSON Self - patient is the insured Medical (General) History Medical History History ICD Code Hypertension Hyperlipidemia Gastroesophageal reflux disease/esophage al spasm Colonoscopy 01/25, hyperplastic polyp, 10 -year follow-up Gastric intestinal metaplasi a, mapping 03/27, metaplasia at 1 of 5 sites, no dysplasia Surgical History Surgery Date(Month/Year) Tonsillectomy Hernia repair 1957 Vasectomy 1990
== END 2025-09-05 14:21 | disposition home or self-care (01) ==
LOC: HO.HMCHD 13:55
PROVIDERS: PCP Student in an Organized Health Care Education/Training Program; Visit Provider Student in an Organized Health Care Education/Training Program
DX: E11.9 Type 2 diabetes mellitus without complications (principal); I10 Essential (primary) hypertension; E78.49 Other hyperlipidemia; K21.9 Gastro-esophageal reflux disease without esophagitis; S93.401A Sprain of unspecified ligament of right ankle, initial encounter; E66.3 Overweight

== ENCOUNTER → 2025-09-05 13:54 | Outpatient (BNVA) | payer MEDICARE, SELFPAY | PROVIDERS: PCP Student in an Organized Health Care Education/Training Program; Visit Provider Student in an Organized Health Care Education/Training Program | DX: E11.9 Type 2 diabetes mellitus without complications (principal); I10 Essential (primary) hypertension; E78.49 Other hyperlipidemia; S93.401A Sprain of unspecified ligament of right ankle, initial encounter; K21.9 Gastro-esophageal reflux disease without esophagitis; E66.3 Overweight; Z87.891 Personal history of nicotine dependence; Z79.84 Long term (current) use of oral hypoglycemic drugs; Z79.82 Long term (current) use of aspirin; Z79.899 Other long term (current) drug therapy | CPT/HCPCS: 99212 ==